=== PATIENT | female | born 1965 | race Caucasian/White ===

== ENCOUNTER 2024-08-14 12:57 | Inpatient (IN) | payer MEDICAID, SELFPAY ==
[2024-08-14] VITALS (30 sets, daily range): BP systolic 61–146; BP diastolic 39–124; PULSE 16–91; RESP 16–29; TEMP 36.5–37.1; O2SAT 70–98; BMI 41.5
--- NOTE | 2024-08-14 13:00 | PC.NURSE ---
Pt. here from [facility], per facility staff to inspector circuitry negative, pt. was altered more today than usual, pt. was answering questions and a GCS of 15 but was slummed over to the left.
[2024-08-14] MEDS: ETOMIDATE INJ 2 MG/ML VIAL 10 ML 20 MG IVP (13:10)
[2024-08-14] MEDS: VECURONIUM 10 MG 20 MG IV (13:11)
--- NOTE | 2024-08-14 13:14 | PC.NURSE ---
Pt. intubated at 1314, tube size 7.0 and 24 @ the lip. Pt. intubated by Dr. Luque, Renetta RN, Nancy RT, Shandra RN, Angela RECREATION TECHNICIAN, Karime RT all bedside.
--- NOTE | 2024-08-14 13:16 | PC.NURSE ---
Pt. has thick brown sputum in ET tube.
[2024-08-14] MEDS: SODIUM CHLORIDE 0.9% 1000 ML 1,000 ML 999 ML IV (13:38)
--- NOTE | 2024-08-14 13:40 | XR_ITS ---
Examination: CT brain head without contrast. 2-D sagittal coronal reconstructions Date and time of exam:August 14, 2024 1451 hrs. Indications: Onset altered mental status today CTDI: vol (mGy):59.7 DLP: (mGycm):1248 Technique: Multiple CT axial sections of the brain have been obtained, 5 mm slice thickness. Contrast has not been administered. 2-D sagittal, coronal reconstructions have been obtained Low dose protocols were performed. One or more of the following dose reduction techniques were used; automated exposure control, adjustment of the mA and/or KV according to patient size, use of iterative reconstruction technique. Findings: Old infarct right middle cerebral artery distribution with ipsilateral ventricular dilatation Intra-axial or extra-axial hemorrhage density is not seen. No mass effect or midline shift Basal cisterns are not remarkable. Fourth ventricle is midline. Cranial vault intact. Impression: Negative for acute hemorrhage, mass effect or midline shift As clinically warranted, brain MRI follow-up would best assess for acute ischemic change
--- NOTE | 2024-08-14 13:40 | XR_ITS ---
Examination: AP chest single view Technique one AP portable supine chest single view Exam date and time: August 14, 2024 1421 hrs. Comparison July 06, 2021 Indications: Hypoxic respiratory failure today Findings: Extensive bilateral lung opacity Endotracheal tube tip 3.4 cm above krish Orogastric tube in the stomach Mild enlargement cardiac contour with vascular congestion Prominent osteopenia Impression: Extensive bilateral lung opacity most consistent with pneumonia Consider mild associated heart failure
--- NOTE | 2024-08-14 13:56 | PC.NURSE ---
received a call from [facility] that pt.'s was visiting pt. earlier today and may have given pt. some pills, staff at facility state pt.'s has been in trouble before for giving pt. pills.
[2024-08-14 13:59] LABS: Base Excess -11 (-3-3); HCO3 19 mEq/L (20-26); PCO2 57 mmHg (32.0-48.0); PO2 80 mmHg (83-108)
[2024-08-14 14:00] LABS: Allen Test Performed/OK; Inspired Oxygen, FIO2 100 %; O2 Saturation 98 % (91-98); Puncture Site Left Radial
[2024-08-14 14:01] LABS: pH, Arterial 7.12 (7.35-7.45)
--- NOTE | 2024-08-14 14:05 | EDNOTE_ITS ---
Altered Mental Status RME/HPI General Chief Complaint: Altered Mental Status Stated Complaint: DIFF BREATHING Time Seen by Provider: 08/14/24 13:39 Arrival date/time: 08/14/24 12:57 RME / HPI RME / HPI narrative: The patient was brought into the emergency department by ambulance from the [place] [facility]. Chief complaint he is on the mental status. Special Education Preschool Teacher noted that the patient is breathing heavy and she is slumping to the left side. The patient does have a history of stroke with left-sided paralysis. Special Education Preschool Teacher also noted that she was hypoxic tachycardic with a blood sugar of 201 and a blood pressure of 144/96 and an O2 saturation of 71% on room air. According to the paperwork from a [place] [facility] the patient is full code Past medical history significant for congestive heart failure, atrial fibrillation, obesity, CVA with left-sided paralysis hypertension, hypothyroidism, congestive heart failure bilateral pneumonia. COPD. Related Data Home Medications ?Medication ?Instructions ?Recorded ?Confirmed alprazolam 0.5 mg tablet 0.5 mg PO BID 08/20/18 07/07/21 hydroxyzine HCl 25 mg tablet 25 mg PO QHSPRN PRN Insomnia 08/20/18 07/07/21 levothyroxine 100 mcg tablet 100 mcg PO QDAY 08/20/18 07/07/21 buspirone 10 mg tablet 10 mg PO BID 07/07/21 07/07/21 diltiazem HCl 30 mg tablet 30 mg PO TID 07/07/21 07/07/21 fluoxetine 20 mg capsule 20 mg PO QDAY 07/07/21 07/07/21 metoprolol succinate 50 mg 50 mg PO QDAY 07/07/21 07/07/21 tablet,extended release 24 hr rivaroxaban 20 mg tablet (Xarelto) 20 mg PO QDAY 07/07/21 07/07/21 Previous Rx's ?Medication ?Instructions ?Recorded furosemide 20 mg tablet (Lasix) 40 mg (2 x 20 mg) PO QDAY #0 tabs 08/24/18 albuterol sulfate 90 mcg/actuation 2 puff inhalation QID PRN 07/09/21 aerosol inhaler shortness of breath or wheezing #6.7 grams methylprednisolone 4 mg tablets in 4 mg PO QDAY #21 tabs 07/10/21 a dose pack (Medrol (Jasvir)) Allergies Allergy/AdvReac Type Severity Reaction Status Date / Time Penicillins Allergy Unknown Verified 07/06/21 14:48 hydrocodone AdvReac Mild N/V Verified 07/06/21 14:48 Review of Systems Review of Systems ROS Unobtainable: unobtainable due to mental status and unobtainable due to medical condition Past Medical History Past Medical History NEUROLOGIC: Positive Cerebrovascular Accident; Negative Neurological Disorders CARDIAC: Positive Cardiac Disorders, Atrial Fibrillation, Hypercholesterolemia, Congestive Heart Failure, Edema, Deep Vein Thrombosis and Hypertension RESPIRATORY: Positive Chronic Obstructive Pulmonary Disease (COPD), Asthma and Sleep Apnea GASTROINTESTINAL: Positive Gastrointestinal Disorders, Gastroesophageal Reflux Disease and Obesity; Negative Hepatitis GENITOURINARY: Negative Genitourinary Disorders or Renal Disease REPRODUCTIVE: Positive Previous Pregnancies MUSCULOSKELETAL: Positive Arthritis; Negative Musculoskeletal Disorders ENDOCRINE: Positive Hypothyroidism; Negative Diabetes Mellitus Type 1 or Diabetes Mellitus Type 2 HEMATOLOGIC: Positive Blood Disorders and Anemia; Negative Sickle Cell Disease PSYCHO/SOCIAL: Positive Depression and Anxiety OTHER HISTORY: Positive Measles and Mumps; Negative Autoimmune Disease, Blood Transfusions, Anesthesia Reactions, MRSA, Human Immunodeficiency Virus (HIV), Chicken Pox, Rubella (Togolese Measles), Pertussis or Clostridium Difficile Surgical History SURGICAL: Negative Cardiac Surgery, Endocrine Surgery, Ear Surgery, Abdominal Surgery or Joint Replacement Social History SMOKING STATUS: Unknown if ever smoked SECOND HAND EXPOSURE: Yes SUBSTANCE USE: does not use ED Exam Narrative Physical exam: GCS of 3 Breathing tachypneic and wet lung sounds. O2 saturation was only 70% on room air. Necessitating immediate intubation. Heent:? per. No icteric. Neck: No mass.? No jvd.? No lymphadenopathy Lungs: Lungs are wet bilaterally. And tachypneic. Full, equal Heart:? s1s2.? Rrr.? No murmur, gallop or rub. Abd: soft, nondistended, nontender, no mass, no rebound or guarding, no flank tender.? No incarcerated? hernia Ext:?No spontaneous movement. No deformity. [place] and warm and moist. Neuro: Nonverbal. No spontaneous eye movement. No spontaneous movement. Upon arrival to the emergency department the patient was seen slumping to the left side of the rsan diego. Skin:? no rash.? No cellulitis.? No lesion.? No laceration Psychiatrical: Not able Course Quality Measures none Orders Category Date Time Status Bedside COVID-19 Antigen Test NOW Care 08/14/24 16:45 Active EKG (ED ONLY) *Do not use* NOW Care 08/14/24 13:40 Completed Phan [Urinary Catheter] QS Care 08/14/24 13:40 Active Intubation NOW Care 08/14/24 13:[address] head/brain wo con Stat Exams 08/14/24 13:40 Completed EKG (ED Only) Stat Exams 08/14/24 13:40 Ordered XR chest 1V portable Stat Exams 08/14/24 13:40 Completed ABG [Arterial Blood Gas] Routine Lab 08/14/24 13:56 Completed BNP [B-Type Natriuretic Peptide] Stat Lab 08/14/24 14:20 Completed Blood Culture (Lab) Stat Lab 08/14/24 16:46 Ordered CBC Stat Lab 08/14/24 14:20 Completed CMP [Comprehensive Metabolic Panel] Stat Lab 08/14/24 14:20 Completed Digoxin Stat Lab 08/14/24 14:20 Completed Drug Screen,Urine Stat Lab 08/14/24 14:00 Completed Procalcitonin Stat Lab 08/14/24 14:20 Completed Sputum Culture and Gram Stain Stat Lab 08/14/24 13:36 Received Troponin I Stat Lab 08/14/24 14:20 Completed UA, C/S IF [Urinalysis, C/S if Indicated] Stat Lab 08/14/24 14:00 Completed Etomidate Inj [Amidate Inj] Med 08/14/24 13:02 Discontinued 20 mg .ROUTE .STK-MED ONE Etomidate Inj [Amidate Inj] Med 08/14/24 13:05 Discontinued 20 mg IVP X1 ONE Pantoprazole Inj [Protonix Inj] Med 08/14/24 16:45 Discontinued 40 mg IVP X1 ONE Sodium Chloride 0.9% 1000 ml [Ns] 1,000 ml Med 08/14/24 13:37 Discontinued IV 999 mls/hr Vancomycin Inj 1,000 mg Med 08/14/24 16:45 Active Sodium Chloride 0.9% 250 ml [Ns] 250 ml IV X1 Vecuronium Inj [Norcuron Inj] Med 08/14/24 13:03 Discontinued 20 mg .ROUTE .STK-MED ONE Vecuronium Inj [Norcuron Inj] Med 08/14/24 13:06 Discontinued 20 mg IV X1 ONE cefTRIAXone/D5w 1gm IV premix [Rocephin/D5w 1gm IV Med 08/14/24 16:45 Active premix] 50 ml IV X1 Mechanical [Volume Ventilator] Stat RT 08/14/24 Active Vital Signs Vital signs: Vital Signs Temperature 98.8 F 08/14/24 12:59 Pulse Rate 91 08/14/24 12:59 Respiratory Rate 16 08/14/24 12:59 Blood Pressure 77/39 L 08/14/24 12:59 Pulse Oximetry (%) 71 L 08/14/24 12:59 Oxygen Delivery Method Room Air 08/14/24 12:59 Altered Mental Status MDM Narrative MDM Narrative:: Upon arrival to the emergency department the patient was intubated by me with a size 7 ET tube. Using glide a scope. No complication. The tube is in position. Positive for CO2 hand-held monitor color changes. No stomach air bubble. O2 saturation went up to as high as 100% on the ventilator. Chest x-ray postintubation: ET tube is in good position. OG tube is in good position. Bibasilar infiltrate. Heart normal. Mediastinum normal. No pneumothorax Twelve-lead EKG interpreted by me: Sinus rhythm. Heart rate of 91. No ST segment elevation. Minimal ST segment depressions in the lateral V leads. PVC. [address] [place] [address] [facility] Report Signed Patient: MARILYN DE LA CRUZ Record#: [id number] Birthdate: 1965 Age/Sex: 59 / F Location: [facility] Attending Dr: Ordering Physician: Andrei Luque MD Date of Service: 08/14/24 Procedure(s): CT head/brain wo con Accession Number(s): [id number] cc: Ed Alcocer MD; Andrei Luque MD~ Examination: CT brain head without contrast. 2-D sagittal coronal reconstructions Date and time of exam:August 14, 2024 1451 hrs. Indications: Onset altered mental status today CTDI: vol (mGy):59.7 DLP: (mGycm):1248 Technique: Multiple CT axial sections of the brain have been obtained, 5 mm slice thickness. Contrast has not been administered. 2-D sagittal, coronal reconstructions have been obtained Low dose protocols were performed. One or more of the following dose reduction techniques were used; automated exposure control, adjustment of the mA and/or KV according to patient size, use of iterative reconstruction technique. Findings: Old infarct right middle cerebral artery distribution with ipsilateral ventricular dilatation Intra-axial or extra-axial hemorrhage density is not seen. No mass effect or midline shift Basal cisterns are not remarkable. Fourth ventricle is midline. Cranial vault intact. Impression: Negative for acute hemorrhage, mass effect or midline shift As clinically warranted, brain MRI follow-up would best assess for acute ischemic change Dictated By: Ed Alcocer MD Signed By: <Electronically signed by Ed Alcocre MD in OV> 08/14/24 1519 CBC negative. CMP remarkable for creatinine 1.4. And BUN of 34. May be consistent with dehydration. Procalcitonin is 17 which is consistent with pneumonia. Troponin is negative. BNP is slightly elevated at 400. Blood gas showing a pH of 7.12. pCO2 97. An O2 saturation of 98% on the vent. UA is negative. CT head resulted as above. In the emergency department when doing the Phan catheter, nurse noted that her stool is black. Guaiac was positive for blood. The patient is put on proton tonics IV by me. The patient is receiving IV antibiotics namely Rocephin and vancomycin for pneumonia. And she was intubated as above. 4:50 PM, I spoke to and discussed with Dr. Badillo, ICU doctor on-call. He agreed to admit the patient for further evaluation and treatment. Thank you Critical care time is approximately 50 minutes excluding any procedure. The high probability of sudden, clinically significant deterioration in the patient?s condition required the highest level of my preparedness to intervene urgently. The services I provided to this patient were to treat and/or prevent clinically significant deterioration. Services included the following: chart data review, reviewing nursing notes and/or old charts, documentation time, valuation consultant collaboration regarding findings and treatment options, medication orders and management, direct patient care, vital sign assessments and ordering, interpreting and reviewing diagnostic studies and lab tests. Aggregate critical care time includes only time during which I was engaged in work directly related to the patient?s care, as described above, whether at bedside or elsewhere in the Emergency Department. It did not include time spent performing other reported procedures or the services of residents, students, nurses or physician assistants. Patient data External records reviewed:: [facility] previous records Clinical information provided by:: EMS Social determinants that could affect healthcare access:: none Patient has the following chronic illnesses:: History of stroke with left-sided hemiparesis How is presenting disease/condition affected by chronic disease/condition?: exacerbated by Evaluation data The following diagnostics were reviewed and interpreted by me:: lab results, radiology exam(s) and EKG tracing(s) Lab and/or radiology exams considered but not ordered:: None Interpretation Summary: See MDM Medications / Prescriptions Medications or Prescriptions considered but not ordered:: None Medication administrations:: Medication Administration History Ceftriaxone Sodium/Dextrose (Rocephin/D5w 1gm Iv Premix) 50 mls @ 100 mls/hr IV X1 ONE Stop: 08/14/24 17:14 Vancomycin HCl 1,000 mg/ (Sodium Chloride) 250 mls @ 150 mls/hr IV X1 ONE Stop: 08/14/24 18:24 Discontinued Medications Etomidate (Etomidate Inj 2 Mg/Ml Vial 10 Ml) 20 mg IVP X1 ONE Stop: 08/14/24 13:06 Last Admin: 08/14/24 13:10 Dose: 20 mg Documented By: ED Etomidate (Etomidate Inj 2 Mg/Ml Vial 10 Ml) Confirm Administered Dose 20 mg .ROUTE .STK-MED ONE Stop: 08/14/24 13:03 Last Admin: 08/14/24 13:12 Dose: Not Given Documented By: ED Non-Admin Reason: Duplicate Medication on eMAR Sodium Chloride (Ns) 1,000 mls @ 999 mls/hr IV .Q1H1M ONE Stop: 08/14/24 14:37 Last Admin: 08/14/24 13:38 Dose: 999 mls/hr Documented By: ED Pantoprazole Sodium (Pantoprazole Inj 40 Mg Vial) 40 mg IVP X1 ONE Stop: 08/14/24 16:46 Vecuronium [place] (Vecuronium Inj 10 Mg Vial) 20 mg IV X1 ONE Stop: 08/14/24 13:07 Last Admin: 08/14/24 13:11 Dose: 20 mg Documented By: ED Co-signed By: Vecuronium [place] (Vecuronium Inj 10 Mg Vial) Confirm Administered Dose 20 mg .ROUTE .STK-MED ONE Stop: 08/14/24 13:04 Last Admin: 08/14/24 13:12 Dose: Not Given Documented By: ED Non-Admin Reason: Duplicate Medication on eMAR See above Consultations Consultation(s) initiated? (list below): No Diagnosis Most likely diagnosis given after review of the tests above:: Pneumonia. Mental status change. Intubation. Admission Indicated Admission indicated?: indicated Admission Request Was there a request for admission?: Yes Admission Attestation Admission request attestation: Discussed case with [] from Hospitalist service regarding admission. Discussed patients ED course, exam findings, labs, and radiology results. The Hospitalist [agrees,declines] to accept the patient for admission. Disposition Plan Disposition Plan: Admit Discharge Plan Plan Patient Disposition: Admit Acute Care w/in Hospital Disposition Comment: Stable and improved for admission Prescriptions/Referrals Prescriptions/Med Rec: No Action levothyroxine 100 mcg Tablet 100 mcg PO QDAY alprazolam 0.5 mg Tablet 0.5 mg PO BID Rx Instructions: Rx Bottle that pt brought empty; pt states she takes the medication as written on the bottle. hydroxyzine HCl 25 mg Tablet 25 mg PO QHSPRN PRN (Reason: Insomnia) furosemide [Lasix] 20 mg Tablet 40 mg PO QDAY Qty: 0 0RF buspirone 10 mg Tablet 10 mg PO BID Rx Instructions: Rx Bottle that pt brought empty; pt states she takes the medication as written on the bottle. fluoxetine 20 mg Capsule 20 mg PO QDAY Xarelto 20 mg Tablet 20 mg PO QDAY metoprolol succinate 50 mg Tablet Extended Release 24 Hr 50 mg PO QDAY diltiazem HCl 30 mg Tablet 30 mg PO TID albuterol sulfate 90 mcg/actuation HFA aerosol inhaler 2 puff inhalation QID PRN (Reason: shortness of breath or wheezing) Qty: 6.7 0RF methylprednisolone [Medrol (Jasvir)] 4 mg tablets,dose pack 4 mg PO QDAY Qty: 21 0RF Referrals: No Primary/Family,Physician [Primary Care Provider] - In 1 week Problem List Clinical Impression: Acute respiratory failure, Pneumonia, AMS (altered mental status), Encounter for intubation, Upper gastrointestinal bleed Patient/Caregiver Discharge Instructions Print Language: Ivorian Stand Alone Forms: Stephania Award Info., Patient Portal Info Letter
[2024-08-14 14:15] LABS: Collection Type, Urine Catheter
[2024-08-14 14:20] LABS: Bilirubin,Urine Negative (Negative); Blood,Urine Negative (Negative); Clarity,Urine Clear (Clear/Hazy); Color,Urine Yellow (Lt Yel-Yel); Culture Indicated,Urine Not Indicated; Glucose, Urine Negative (Negative); Hyaline Casts,Urine < 1 /hpf (0-1); Ketones,Urine Negative (Negative); Leukocyte Esterase,Urine Negative (Negative); Nitrite,Urine Negative (Negative); PH,Urine 5.5 (5.0-7.0); Protein,Urine Negative (Neg - Trace); RBC,Urine 3 /hpf (0-3); Squamous Epithelial Cell,Urine 1 /hpf (0-5); WBC,Urine 5 /hpf (0-5)
[2024-08-14 14:34] LABS: Amphetamine/Methamp Scrn,U Negative (Negative); Barbiturate Screen,Urine Negative (Negative); Benzodiazepines Screen,Urine Positive (Negative); Benzoylecgonine Screen, Ur Negative (Negative); Fentanyl Screen,Urine Negative (Negative); Opiate Screen,Urine Negative (Negative); THC Screen,Urine Negative (Negative)
[2024-08-14 14:57] LABS: Basophils % (Auto) 0 % (0-2.5); Eosinophils % (Auto) 0 % (0-10); Hematocrit 43.6 % (36.0-46.0); Hemoglobin 12.7 g/dL (12.0-16.0); Immature Granulocytes % (Auto) 0 % (0-0); Immature Granulocytes Auto 0.04 Thou/mm3 (0.00-0.00); Lymphocytes # (Auto) 1.2 Thou/mm3 (1.0-4.8); Lymphocytes % (Auto) 11 % (10-50); Mean Corpuscular HGB Conc 29.1 g/dl (31.0-37.0); Mean Corpuscular Hemoglobin 25.2 pg (25.0-35.0); Mean Corpuscular Volume 87 fL (80-100); Monocytes # (Auto) 0.7 Thou/mm3 (0.0-0.8); Monocytes % (Auto) 6 % (0-12); Neutrophils % (Auto) 82 % (37-80); Nucleated Red Blood Cell # 0.02 Thou/mm3 (0.00-0.00); Nucleated Red Blood Cell % 0 /100 WBC (0); Platelet Count 971 Thou/mm3 (140-440); RDW Standard Deviation 65.6 fL (36.4-46.3); Red Blood Count 5.03 Miln/mm3 (4.00-5.20)
[2024-08-14 15:03] LABS: B-Type Natriuretic Peptide 405 pg/mL (0-100)
[2024-08-14 15:22] LABS: Alanine Aminotransferase 24 U/L (10-49); Albumin, Serum 2.4 gm/dL (3.5-5.0); Albumin/Globulin Ratio 0.7 (1.2-2.2); Alkaline Phosphatase 271 U/L (46-116); Anion Gap 13 (7-16); Aspartate Amino Transferase 74 U/L (0-34); BUN/Creatinine Ratio 24 Ratio (12-20); Bilirubin,Total 0.6 mg/dL (0.3-1.2); Blood Urea Nitrogen 34 mg/dL (9-23); Calcium 8.3 mg/dL (8.3-10.6); Calcium (Corrected) 9.6 mg/dL (8.5-10.1); Carbon Dioxide 19.1 mMol/L (20.0-31.0); Chloride 100 mMol/L (98-107); Creatinine (Component) 1.4 mg/dL (0.6-1.3); Estimated Creatinine Clearance 55.7 mL/min (>60); Globulin 3.5 gm/dL (2.3-3.5); Glucose 139 mg/dL (74-106); Osmolality,Calculated 274 (275-295); Procalcitonin 17.62 ng/ml (0.0-0.49); Sodium 132 mMol/L (136-145); Total Protein 5.9 gm/dL (5.7-8.2); Troponin I < 0.020 ng/mL (0.0-0.045); eGFR 44 See Note
[2024-08-14 15:25] LABS: Digoxin 2.7 ng/mL (0.8-2.0)
--- NOTE | 2024-08-14 15:26 | PC.NURSE ---
Pt. cleaned and pt. has dark black stool, pt. has redness to her buttocks, pt. has redness to her chest as well.
[2024-08-14] MEDS: cefTRIAXone/D5w 1gm IV premix 50 ML IV (17:34)
[2024-08-14] MEDS: PANTOPRAZOLE INJ 40 MG VIAL IVP (17:40)
[2024-08-14 18:03] LABS: Path Review Blood Smear Sent to Pathologist
[2024-08-14 18:07] LABS: Base Excess -9 (-3-3); HCO3 20 mEq/L (20-26); Inspired Oxygen, FIO2 100 %; O2 Saturation 90 % (91-98); PCO2 58 mmHg (32.0-48.0); PO2 69 mmHg (83-108)
[2024-08-14 18:09] LABS: Allen Test Performed/OK; Puncture Site Right Radial
[2024-08-14 18:10] LABS: pH, Arterial 7.15 (7.35-7.45)
--- NOTE | 2024-08-14 18:17 | PC.RT ---
ABG results reported to MD. RR increased to 20 per MD. Repeat ABG to be done in 1hr.
--- NOTE | 2024-08-14 18:20 | XR_ITS ---
Examination: CT chest, without intravenous contrast. CT abdomen, without intravenous contrast. CT pelvis, without intravenous contrast. 2-D sagittal and coronal reconstructions. 3-D reconstructions. Date and time of exam:August 14, 2024 1933 hrs. Indications: Acute hypoxic respiratory failure shortness of breath this week CTDI vol (mgy) 25 DLP (MGycm)2031 Technique: Multiple CT images, 3.0 mm slice thickness, obtained chest, abdomen, pelvis, with the high-resolution 64 slice scanner.. Sagittal and coronal 2-D reconstructions are obtained. 3-D reconstructions Low dose protocols were performed. One or more of the following dose reduction techniques were used; automated exposure control, adjustment of the mA and/or KV according to patient size, use of iterative reconstruction technique. Findings: Thoracic aortic calcification no aneurysmal dilatation Pulmonary artery segments are not enlarged extensive bilateral primarily mid and lower lung zone pneumonia Tracheal tube tip 3.5 cm above krish Mild enlargement cardiac contour with vascular congestion Severe diffuse fatty infiltration throughout the liver no focal liver or splenic lesions Cholelithiasis, gallbladder wall appears thickened Spleen is not enlarged No pancreatic mass No hydronephrosis renal or ureteral calculi Abdominal aortic calcification no aneurysmal dilatation No bowel obstruction Diffuse thickening of the colonic wall including rectum Urinary bladder contracted around a Phan catheter Severe osteopenia Impression: Significant bilateral pneumonia ARDS pattern Cholelithiasis, recommend gallbladder sonography follow-up to exclude cholecystitis Severe diffuse fatty infiltration throughout the liver Significant diffuse nonspecific colitis proctitis pattern
--- NOTE | 2024-08-14 18:43 | PD.RESHP ---
Documentation for date of: 08/14/24 [facility] History of Present Illness Chief complaint: AMS History of present illness: 59 y/o F with PMHx significant for CHF, Afib, HTN, COPD, CVA with residual left sided paralysis, brought in by EMS from [facility] due to AMS. EMS noted patient was hypoxic saturating 71% on room air. On arrival patient was determined to be A&Ox4 and GCS 15 in the ED. Patient intubated due to severe hypoxia. Nursing facility called to inform ED that patient's had visited and has been known to give patient pills. Tox screen positive for benzos. While placing Phan cath, nurse noted patient had black stools. Stool guac positive. Patient received 1L bolus NS, ceftriaxone, and protonix in the ED. Head CT unremarkable. CXR showed bilateral central opacities indicating pneumonia and congestion. Patient admitted to ICU due to intubation. Review of Systems Review of Systems ROS Unobtainable: unobtainable due to mental status and due to endotracheal tube Exam Vital Signs Temp Pulse Resp BP Pulse Ox O2 Del Method FiO2 98.8 F 86 16 105/51 L 93 L Mechanical Ventilation 100 08/14/24 12:59 08/14/24 18:12 08/14/24 17:54 08/14/24 18:09 08/14/24 18:12 08/14/24 17:54 08/14/24 18:12 Narrative Exam PE: Gen: Well-developed and well-nourished. Obese. Intubated. HEENT: NCAT, PERRLA, EOMI, MMM, anicteric conjunctivae. CVS: normal S1 and S2. RRR. No M/R/G. Resp: Poor lung sounds due to body habitus. Coarse lung sounds throughout. Left basilar crackles. Abd: soft, non-tender, non-distended. Firm mass in RLQ. MSK: 2+ pitting edema in bilateral upper and lower extremities. Extremities cool to touch. Neuro: GCS 3. Results: Labs 08/16/24 07:50 08/16/24 06:40 Labs: Short CBC 08/14/24 Range/Units 14:20 WBC 11.0 (3.6-11.0) Thou/mm3 Hgb 12.7 (12.0-16.0) g/dL Hct 43.6 (36.0-46.0) % Plt Count 971 H (140-440) Thou/mm3 BMP 08/14/24 14:20 Sodium 132 L Potassium 4.0 Chloride 100 Carbon Dioxide 19.1 L BUN 34 H Creatinine 1.4 H Glucose 139 H Calcium 8.3 Cardiac Enzymes 08/14/24 Range/Units 14:20 Troponin I < 0.020 (0.0-0.045) ng/mL Liver Function 08/14/24 Range/Units 14:20 Total Bilirubin 0.6 (0.3-1.2) mg/dL AST 74 H (0-34) U/L ALT 24 (10-49) U/L Alkaline Phosphatase 271 H (46-116) U/L Albumin 2.4 L (3.5-5.0) gm/dL Urine 08/14/24 Range/Units 14:00 Urine Color Yellow (Lt Yel-Yel) Urine Clarity Clear (Clear/Hazy) Urine pH 5.5 (5.0-7.0) Ur Specific [place] 1.020 (1.001-1.035) Urine Protein Negative (Neg - Trace) Urine Glucose (UA) Negative (Negative) ABG Interpretation ABG results: 08/14/24 08/14/24 13:56 18:03 ABG pH 7.12 L* 7.15 L* ABG pCO2 57 H 58 H ABG pO2 80 L 69 L ABG HCO3 19 L 20 ABG O2 Saturation 98 90 L ABG Base Excess -11 L -9 L Quality Measures Quality Measures VTE prophylaxis Medications Home Medications and Allergies Home Medications ?Medication ?Instructions ?Recorded ?Confirmed ?Type alprazolam 0.5 mg tablet 0.5 mg PO BID 08/20/18 07/07/21 History hydroxyzine HCl 25 mg tablet 25 mg PO QHSPRN PRN Insomnia 08/20/18 07/07/21 History levothyroxine 100 mcg tablet 100 mcg PO QDAY 08/20/18 07/07/21 History buspirone 10 mg tablet 10 mg PO BID 07/07/21 07/07/21 History diltiazem HCl 30 mg tablet 30 mg PO TID 07/07/21 07/07/21 History fluoxetine 20 mg capsule 20 mg PO QDAY 07/07/21 07/07/21 History metoprolol succinate 50 mg 50 mg PO QDAY 07/07/21 07/07/21 History tablet,extended release 24 hr rivaroxaban 20 mg tablet (Xarelto) 20 mg PO QDAY 07/07/21 07/07/21 History Allergies Allergy/AdvReac Type Severity Reaction Status Date / Time Penicillins Allergy Unknown Verified 07/06/21 14:48 hydrocodone AdvReac Mild N/V Verified 07/06/21 14:48 Visit Medications Acetaminophen (Acetaminophen 325 Mg Tablet) 650 mg PO Q4HR PRN PRN Reason: PAIN SCALE 1-3 (mild Stop: 09/13/24 17:20 Acetaminophen (Acetaminophen Supp 650 Mg Supp) 650 mg ND Q4HR PRN PRN Reason: PAIN SCALE 1-3 (mild Stop: 09/13/24 17:20 Al Hydrox/Mg Hydrox/Simethicone (Mg Hyd/Al Hyd/Nolan (Maalox Reg) Susp 30 Ml Udc) 30 ml PO Q4HR PRN PRN Reason: Heartburn or Upset Stomach Stop: 09/13/24 17:20 Dextrose (Dextrose 50%-Water Inj 50 Ml Syringe) 25 ml IV Q15MIN PRN PRN Reason: BG 50-70 responsive npo pt Stop: 09/13/24 17:44 Dextrose (Dextrose 50%-Water Inj 50 Ml Syringe) 50 ml IV Q15MIN PRN PRN Reason: BG <50 OR BG <70 & pt unresponsive Stop: 09/13/24 17:44 Fentanyl Citrate (Sublimaze Inj 2,500 Mcg/250 Ml Bag) 2,500 mcg in 250 mls @ 2.5 mls/hr IV .Q24H PRN; Protocol PRN Reason: PER PROTOCOL Stop: 08/19/24 17:20 Azithromycin 500 mg/ Sodium (Chloride) 250 mls @ 250 mls/hr IV QDAY@1400 CONSTANCE Stop: 08/21/24 17:33 Propofol (Diprivan Ivpb) 1,000 mg in 100 mls @ 3.402 mls/hr IV .Q24H PRN; Protocol PRN Reason: PER PROTOCOL Stop: 09/13/24 17:36 Ceftriaxone Sodium/Dextrose (Rocephin/D5w 1gm Iv Premix) 50 mls @ 100 mls/hr IV QDAY@1400 CONSTANCE Stop: 08/22/24 13:59 Insulin Human Lispro (Insulin Lispro (Admelog) 1 Unit/0.01 Ml Unit) 0 unit SC ACHS [facility]; Protocol Stop: 09/13/24 20:59 Magnesium Hydroxide (Milk Of Magnesia Susp 30 Ml Udc) 30 ml PO QDAY PRN PRN Reason: CONSTIPATION Stop: 09/13/24 17:20 Nitroglycerin (Nitroglycerin 0.4 Mg Subl Btl #25) 0.4 mg SL Q5MIN PRN PRN Reason: CHEST PAIN Ondansetron HCl (Ondansetron Inj 2 Mg/Ml Inj 2 Ml) 4 mg IV Q8HR PRN PRN Reason: NAUSEA OR VOMITING Stop: 09/13/24 17:20 Rivaroxaban (Rivaroxaban 10 Mg Tablet) 20 mg PO WSUPPER [facility] Stop: 09/14/24 17:29 Discontinued Medications Etomidate (Etomidate Inj 2 Mg/Ml Vial 10 Ml) 20 mg IVP X1 ONE Stop: 08/14/24 13:06 Last Admin: 08/14/24 13:10 Dose: 20 mg Heparin Sodium (Porcine) (Heparin Sod Inj 5000 Unit/Ml Vial) 5,000 unit SC Q8HR [facility] Stop: 08/28/24 21:59 Sodium Chloride (Ns) 1,000 mls @ 999 mls/hr IV .Q1H1M ONE Stop: 08/14/24 14:37 Last Infusion: 08/14/24 14:39 Dose: Infused Ceftriaxone Sodium/Dextrose (Rocephin/D5w 1gm Iv Premix) 50 mls @ 100 mls/hr IV X1 ONE Stop: 08/14/24 17:14 Last Admin: 08/14/24 17:34 Dose: 100 mls/hr Vancomycin HCl 1,000 mg/ (Sodium Chloride) 250 mls @ 150 mls/hr IV X1 ONE Stop: 08/14/24 18:24 Pantoprazole Sodium (Pantoprazole Inj 40 Mg Vial) 40 mg IVP X1 ONE Stop: 08/14/24 16:46 Last Admin: 08/14/24 17:40 Dose: 40 mg Vecuronium [place] (Vecuronium Inj 10 Mg Vial) 20 mg IV X1 ONE Stop: 08/14/24 13:07 Last Admin: 08/14/24 13:11 Dose: 20 mg Assessment & Plan Plan 59 y/o F with PMHx significant for CHF, Afib, HTN, COPD, CVA with residual left sided paralysis, brought in by EMS from [facility] due to AMS, admitted to ICU for AHRF requiring intubation. Neuro: #Acute encephalopathy Patient was A&Ox4 and GCS 15 on arrival, GCS [address] unremarkable. -Treat underlying conditions #CVA history Patient has history of CVA with left sided paralysis Cardio: #Cardiogenic shock Patient has poor perfusion, with lactate 5.0, cool pale extremities. Patient has history of CHF. Significant pitting edema, vascular congestion of CXR, crackles in LL lung, BNP 405. EKG showed ST depressions in leads V3?V6 and diffuse T wave inversions. -Lasix 40mg x1 -echo pending -trending troponin -Levophed titrate to protocol #A-fib Patient has history of A-fib. Receives outpatient Xarelto. -Resume home Xarelto 20 mg daily Pulm: #AHRF 2/ fluid overload #Pneumonia Patient presented with hypoxia 71% on room air. Patient intubated for AHRF. Patient is fluid overloaded on exam, crackles on left lower lung chen, CXR showing vascular congestion and diffuse haziness indicating pneumonia. Patient leukocytosis 11.0 (borderline elevated), Pro-Andry 17.62. -Rocephin and azithromycin -Lasix 40 mg IV x 1 GI: #Abdominal mass Firm abdominal mass found in RLQ on exam. CT chest/abd/pelvis pending. -follow up CT results #Melana Patient had melena with positive stool guac test. Hemoglobin is 12.7. CT abd/chest/pelvis pending. BUN 34, BUN/Machine Shop Apprentice ratio 24, more consistent with prerenal QASIM than upper GI bleed. -follow up CT -Protonix 40mg IV daily -Monitor for further signs of GI bleed -Monitor hemoglobin Renal: #QASIM vs CKD Patient had elevated creatinine and BUN on admission. No recent labs, unable to determine if acute or chronic. Suspect prerenal due to renal congestion. -Monitor urine output -daily labs -avoid nephrotoxins -Lasix 40mg IV x1 #Anion gap metabolic acidosis Patient is acidotic with with ABG showing pH 7.15, pCO2 58, pO2 69. Serum bicarb 19.1. Anion gap corrected for low albumin 17. Lactic acid elevated 5.0 due to cardiogenic shock. -Treat lactic acidosis -Adjust vent settings as needed to maintain permissive hypercapnia Endo: #Hyperglycemia Patient has no known history of diabetes. Patient blood sugar elevated around 200. Most recent A1c 6.2% on 03/10/18. -A1c ordered. -ISS -q6h glucose checks Heme: #Thrombocytosis Patient has thrombocyte count 971. No known history of myeloproliferative disorder. -Consider testing for proliferative mutations. ID: #Pneumonia Patient has diffuse haziness on chest x-ray indicating possible pneumonia. Patient is afebrile, leukocyte count 11.0 borderline elevated, Pro-Andry 17.62. -Azithromycin 500 mg IV daily (started 08/14) -Ceftriaxone 2 g IV daily (started 08/14) Skin/MSK: #LYNETTE ICU Health maintenance: Mechanical ventilation: Yes Sedation: None Diet: None DVT ppx: Xarelto GI ppx: Protonix Phan: Yes IV lines: 3 Peripheral IVs Central line: No Arterial line: No Code status:Full Code Plan of care discussed with attending Dr. Badillo. Nakul Samuel MD PGY-1 Attending Provider Attestation/Addendum Patient not seen on date of service. Patient admitted by residents with mixed septic/cardiogenic shock. I was contacted by resident team and did direct plan of care as per above. Patient with significant lactic acidosis with imaging suggestive of ischemic colitis. Potential confounder as well noted with the right lower quadrant mass as an alternate etiology for type B lactic acidosis despite adequate perfusion. We requested surgical input immediately after our review of the CT. Appreciate surgical input overnight. Maintain MAP goal of 65 and follow serial lactate patient requiring increasing vasopressor doses with central line placed at my direction. Appropriate volume resuscitation with antibiotics until clarified goals of potential surgical intervention based on surgical/family's input and patient's needs. Will continue serial abdominal exams with potential for abdominal pressures showed ventilator suggest increasing intra-abdominal hypertension. Continue to monitor serial lactic and adjustments made appropriately for mechanical ventilation with additional sedation to optimize synchrony with ventilator. Total critical care time: I personally spent 45 minutes for review of physiologic parameters, directing plan of care overnight, and coordination of care with other specialists. Resident staff notified patient's family throughout the night including worsening hypotension and clinical status with potential need for surgical intervention pending. Patient continues to require critical care services for mixed septic/cardiogenic shock in the setting of ischemic colitis with intra-abdominal mass. This is exclusive of time spent teaching housestaff or performing any separate billable procedures.
[2024-08-14 18:53] LABS: Thyroid Stimulating Hormone 1.68 uIU/mL (0.55-4.78)
[2024-08-14] MEDS: FUROSEMIDE INJ 10 MG/ML 4ML VIAL 40 MG IVP (21:20)
--- NOTE | 2024-08-14 21:21 | XR_ITS ---
Examination: AP chest single view Technique: AP portable supine chest single view Exam date and time: August 14, 2024 2131 hrs. Comparison August 14, 2024 1418 hrs. Indications: Post central line placement Findings: Extensive bilateral lung opacity Mild to moderate enlargement left ventricle Endotracheal tube tip 3.9 cm above krish Right internal jugular central line tip SVC no pneumothorax Orogastric tube in the stomach Impression: Interval insertion right internal jugular central line, tip SVC satisfactory position, no pneumothorax
[2024-08-14 21:28] LABS: Reflex Lactate? Y
[2024-08-14 21:40] LABS: Base Excess -9 (-3-3); HCO3 19 mEq/L (20-26); Inspired Oxygen, FIO2 100 %; O2 Saturation 89 % (91-98); PCO2 48 mmHg (32.0-48.0); PO2 64 mmHg (83-108)
[2024-08-14 21:41] LABS: Allen Test Performed/OK; Puncture Site Right Radial
--- NOTE | 2024-08-14 21:42 | PD.RESPROC ---
Procedures Procedure Date / Time 08/14/242141 Procedure Narrative Procedure Narrative: Attending Attestation: I was not present at the time of my placement though I was made aware. I agree with the plan for central line placement and follow-up x-ray shows adequate placement with no postprocedural pneumothorax. Central Line Placement Right IJ: Indication(s): shock and poor, or inadequate peripheral venous access Informed consent obtained: implied Time out done, and the following verified: correct patient, side and site, procedure, patient position and implants and/or equipment Patient placed on monitor/pulse ox: Yes Hand Hygiene: soap & water and alcohol-based hand rub Max Sterile Barrier Techniques used: cap, mask, sterile gown, sterile gloves and sterile full body drape Central line prep: Chlorhexidine scrub and sterile drapes applied Local anesthesia used: lidocaine 1% Amount of anesthesia used (mL): 5 Ultrasound used for placement: Yes Sterile Technique if Ultrasound used, including sterile gel: yes Central line lumen inserted: triple Post procedure: sutured in place, good blood return, all ports aspirated, flushed, capped and sterile dressing applied Post procedure x-ray: tip of catheter in good position and no pneumothorax seen Patient tolerated procedure: well and no complications EBL(ml): 5 Complications: none Procedure comment: Patient discussed with my attending Dr Aby Tidwell MD PGY-3 Disclaimer: Despite multiple revisions, due to the dictation software being used, the document bellow may not be free of grammatical errors including phonetic/typographic errors. However, this does not deter from our commitment to providing health care in the patient's best interest in mind.
[2024-08-14] MEDS: AZITHROMYCIN INJ 500 MG in SODIUM CHLORIDE 0.9% 250 ML 250 ML 250 MG IV (21:45)
[2024-08-14] MEDS: Vancomycin Inj 1,000 MG in SODIUM CHLORIDE 0.9% 250 ML 250 ML 150 MG IV (21:48)
[2024-08-14] MEDS: Norepinephrine/D5W 8mg/250ml 8 MG/250 ML BAG 10.631 MG IV (21:57)
[2024-08-14] MEDS: metroNIDAZOLE/NS 500 MG IVPB 500 MG/100 ML BAG 200 MG IV (22:00)
[2024-08-14 22:07] LABS: Lactate (Lactic Acid) 5.2 mMol/L (0.4-2.0)
[2024-08-14 22:21] LABS: Troponin I < 0.020 ng/mL (0.0-0.045)
[2024-08-14 22:28] LABS: Ammonia 102 uMol/L (11-32)
[2024-08-14] MEDS: RINGERS LACTATED 1000 ML 1,000 ML 50 ML IV (22:39)
--- NOTE | 2024-08-14 22:43 | PC.RT ---
spo2 improved to 93% when peep increased to 10, pip pressures 30, pat pressures 25. DR. mullins was at bedside assessing pt at 22:20
[2024-08-14] MEDS: CIPROFLOXACIN/D5w 400 MG IVPB 400 MG/200 ML BAG 200 MG IV (23:00)
--- NOTE | 2024-08-14 23:33 | ESCONSULT_ITS ---
HPI Consult details Consult date: 08/14/24 Reason for consultation narrative: Patient was seen on consultation because of septic shock and CT findings of the abdomen showing possible nonspecific colitis History of present illness: Patient was admitted this afternoon because of the respiratory failure and was intubated in the emergency room and subsequently admitted to the ICU. In the ICU she has been requiring some pressors to keep the blood pressure. She is intubated and is not able to give any history of abdominal pain. Obviously also difficult to examine her. She has a history of atrial fibrillation with in the past and has had a stroke in with weakness on the left side she has had history of hypertension and hyperlipidemia and hemiplegia affecting the left side. There is history of abdominal pain when she was in the group home associated with some black stools as per her who is not here to discuss with me. Past Medical History Past Medical History NEUROLOGIC: Positive Cerebrovascular Accident; Negative Neurological Disorders CARDIAC: Positive Cardiac Disorders, Atrial Fibrillation, Hypercholesterolemia, Congestive Heart Failure, Edema, Deep Vein Thrombosis and Hypertension RESPIRATORY: Positive Chronic Obstructive Pulmonary Disease (COPD), Asthma and Sleep Apnea GASTROINTESTINAL: Positive Gastrointestinal Disorders, Gastroesophageal Reflux Disease and Obesity; Negative Hepatitis GENITOURINARY: Negative Genitourinary Disorders or Renal Disease REPRODUCTIVE: Positive Previous Pregnancies MUSCULOSKELETAL: Positive Arthritis; Negative Musculoskeletal Disorders ENDOCRINE: Positive Hypothyroidism; Negative Diabetes Mellitus Type 1 or Diabetes Mellitus Type 2 HEMATOLOGIC: Positive Blood Disorders and Anemia; Negative Sickle Cell Disease PSYCHO/SOCIAL: Positive Depression and Anxiety OTHER HISTORY: Positive Measles and Mumps; Negative Autoimmune Disease, Blood Transfusions, Anesthesia Reactions, MRSA, Human Immunodeficiency Virus (HIV), Chicken Pox, Rubella ([place] Citizen Measles), Pertussis or Clostridium Difficile Surgical History SURGICAL: Negative Cardiac Surgery, Endocrine Surgery, Ear Surgery, Abdominal Surgery or Joint Replacement Social History SMOKING STATUS: Unknown if ever smoked SECOND HAND EXPOSURE: Yes SUBSTANCE USE: does not use Meds Home Medications and Allergies Home Medications ?Medication ?Instructions ?Recorded ?Confirmed ?Type alprazolam 0.5 mg tablet 0.5 mg PO BID 08/20/18 07/07/21 History hydroxyzine HCl 25 mg tablet 25 mg PO QHSPRN PRN Insomnia 08/20/18 07/07/21 History levothyroxine 100 mcg tablet 100 mcg PO QDAY 08/20/18 07/07/21 History buspirone 10 mg tablet 10 mg PO BID 07/07/21 07/07/21 History diltiazem HCl 30 mg tablet 30 mg PO TID 07/07/21 07/07/21 History fluoxetine 20 mg capsule 20 mg PO QDAY 07/07/21 07/07/21 History metoprolol succinate 50 mg 50 mg PO QDAY 07/07/21 07/07/21 History tablet,extended release 24 hr rivaroxaban 20 mg tablet (Xarelto) 20 mg PO QDAY 07/07/21 07/07/21 History Allergies Allergy/AdvReac Type Severity Reaction Status Date / Time Penicillins Allergy Unknown Verified 07/06/21 14:48 hydrocodone AdvReac Mild N/V Verified 07/06/21 14:48 Exam Vital Signs Temp Pulse Resp BP Pulse Ox O2 Del Method FiO2 97.7 F 87 20 82/55 L 93 L Mechanical Ventilation 100 08/14/24 20:10 08/14/24 23:01 08/14/24 20:45 08/14/24 22:45 08/14/24 23:01 08/14/24 17:54 08/14/24 22:13 Narrative Exam Physical examination revealed an morbidly obese white female who is 5 feet 5 inches tall weighing 250 pounds with BMI of 41.6. Patient is not arousable but she winces on deep palpation of the abdomen especially in the lower portion. She still having a blood pressure which is being maintained by Levophed. Her heart rate is 87 Routine Abdominal Exam Comments: Examination of the abdomen shows no significant tenderness but it is difficult to evaluate because of the intubation. She has having black stools after admitting to the ICU. Routine Extremities Exam Comments: Examination of the lower extremities revealed that patient has had diffuse edema of both the lower limbs probably due to fluid retention. Results Results: Laboratory Laboratory Narrative: Laboratory workup showed a WBC of around 11,000. Her lactic acid is 5.2. Results: Imaging Imaging narrative: Patient's chest x-ray shows bilateral diffuse infiltrate with an ARDS picture. CT scan of the abdomen showed nonspecific colitis with thickening of the left colon including the rectum. There is no free air or fluid in the abdomen or distended loops of small bowel Assessment & Plan Additional Assessment Additional comments: Impression: Septic shock possibly due to respiratory and metabolic cause Respiratory failure with hypoxia Hypotension Abdominal pain by history from the Status post CVA Atrial fibrillation Plan Plan: Hospitalist asked me whether she will require exploration just based on the above abdominal CT finding. At this time I do not have the benefit of examining her physically to make the determination of whether she will need exploration. I am limited but based on the CT scan I do not see any need for exploration. There is no on specific thickening of the bowel wall or the colitis pattern is not surgical condition. However her black stools raise some suspicion of ischemic colitis. 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 Meanwhile we will continue this present resuscitation with antibiotics and correction of sepsis. I still may have to explore blindly if her condition gets worse. But at this time based on the CT scan alone patient does not require exploration. I will follow the patient with you
[2024-08-15] VITALS (109 sets, daily range): BP systolic 53–187; BP diastolic 32–104; PULSE 72–118; RESP 20–29; TEMP 36.5–39; O2SAT 74–99; BMI 45.4
--- NOTE | 2024-08-15 00:09 | EVENTNT_ITS ---
Documentation for date of: 08/15/24 Event Note Event Note: Around 22:30 p.m. I contacted the patient [facility] to gather more information about what happened before coming to the ED. Per nursing notes at the facility this morning patient did not have any complaints she was at baseline without any complaints. Around 10: 30 AM patient stated that she was not feeling well and became diaphoretic, tachycardic, hypotensive saturations were not obtainable at that time and moaning and unresponsive per the nursing staff yellow secretion came out of her mouth, they noticed as well black tarry stools with spots of tinged blood. I spoke as well with the patient Yelitza key who stated that 2 days previous to the episode patient was complaining of abdominal pain. General surgery was consulted due to concerns of the CT chest/abdomen/pelvis that showed unspecified colitis vs
[2024-08-15 00:44] LABS: Lactate (Lactic Acid) 6.4 mMol/L (0.4-2.0)
[2024-08-15] MEDS: INSULIN LISPRO (AdmeLOG) 1 UNIT/0.01 ML UNIT SC (00:46)
[2024-08-15 00:51] LABS: Basophils # (Auto) 0.1 Thou/mm3 (0.0-0.2); Basophils % (Auto) 0 % (0-2.5); Eosinophils % (Auto) 0 % (0-10); Hematocrit 39.2 % (36.0-46.0); Hemoglobin 11.2 g/dL (12.0-16.0); Immature Granulocytes % (Auto) 1 % (0-0); Immature Granulocytes Auto 0.22 Thou/mm3 (0.00-0.00); Lymphocytes # (Auto) 2.2 Thou/mm3 (1.0-4.8); Lymphocytes % (Auto) 9 % (10-50); Mean Corpuscular HGB Conc 28.6 g/dl (31.0-37.0); Mean Corpuscular Hemoglobin 25.6 pg (25.0-35.0); Mean Corpuscular Volume 90 fL (80-100); Monocytes # (Auto) 1.2 Thou/mm3 (0.0-0.8); Monocytes % (Auto) 5 % (0-12); Neutrophils # (Auto) 21.8 Thou/mm3 (1.8-7.7); Neutrophils % (Auto) 86 % (37-80); Nucleated Red Blood Cell % 0 /100 WBC (0); Platelet Count 857 Thou/mm3 (140-440); RDW Standard Deviation 66.9 fL (36.4-46.3); Red Blood Count 4.37 Miln/mm3 (4.00-5.20); White Blood Count 25.5 Thou/mm3 (3.6-11.0)
[2024-08-15 00:54] LABS: Reflex Lactate? Y
--- NOTE | 2024-08-15 01:18 | XR_ITS ---
Examination: AP chest single view Technique one AP portable semiupright chest single view Exam date and time: August 15, 2024 0125 hrs. Comparison August 14, 2024 Indications: Decreasing O2 saturation, hypoxia, hypoxic respiratory failure, extensive bilateral pneumonia with mild heart failure on earlier chest imaging this week, post intubation Findings: Extensive bilateral pneumonia Mild associated heart failure Right internal blood or central line tip SVC satisfactory position Endotracheal tube tip 4.9 cm above krish The orogastric tube is in the stomach satisfactory position Impression: No improvement in extensive bilateral pneumonia and mild associated heart failure
[2024-08-15] MEDS: MIDAZOLAM INJ 1 MG/ML VIAL 2 ML 4 MG IV (01:19)
[2024-08-15] MEDS: ROCURONIUM INJ 10 MG/ML VIAL 10 ML 50 MG IVP (01:24)
[2024-08-15 01:38] LABS: Base Excess -13 (-3-3); HCO3 15 mEq/L (20-26); Inspired Oxygen, FIO2 21 %; O2 Saturation 85 % (91-98); PCO2 42 mmHg (32.0-48.0)
--- NOTE | 2024-08-15 01:38 | PC.RT ---
pt spo2 dropped to the low 80s, ventilated the pt with an ambu bag for over 15 min spo2 did not improved abg drawn while pt being ventilated with an ambu bag place back on vent due to spo2 not improving, peep increased to 12, fio2 100% endtidal co2 31, spo2 at 90%, DR. mullins at bedside.
[2024-08-15 01:40] LABS: Allen Test Performed/OK; Puncture Site Right Radial
[2024-08-15 01:41] LABS: pH, Arterial 7.17 (7.35-7.45)
[2024-08-15 01:42] LABS: PO2 57 mmHg (83-108)
[2024-08-15 01:43] LABS: Alanine Aminotransferase 25 U/L (10-49); Albumin, Serum 2.1 gm/dL (3.5-5.0); Albumin/Globulin Ratio 0.7 (1.2-2.2); Alkaline Phosphatase 204 U/L (46-116); Anion Gap 14 (7-16); Aspartate Amino Transferase 50 U/L (0-34); BUN/Creatinine Ratio 28 Ratio (12-20); Bilirubin,Total 0.7 mg/dL (0.3-1.2); Blood Urea Nitrogen 39 mg/dL (9-23); Calcium 8.1 mg/dL (8.3-10.6); Calcium (Corrected) 9.6 mg/dL (8.5-10.1); Carbon Dioxide 18.1 mMol/L (20.0-31.0); Chloride 101 mMol/L (98-107); Creatine Kinase 27 U/L (34-171); Creatinine (Component) 1.4 mg/dL (0.6-1.3); Estimated Creatinine Clearance 55.7 mL/min (>60); Globulin 2.9 gm/dL (2.3-3.5); Glucose 163 mg/dL (74-106); Magnesium 2.6 mg/dL (1.6-2.6); Osmolality,Calculated 279 (275-295); Phosphorous 5.8 mg/dL (2.4-5.1); Potassium 3.8 mMol/L (3.4-5.1); Sodium 133 mMol/L (136-145); eGFR 44 See Note
[2024-08-15] MEDS: PROPOFOL 1,000 MG IVPB 1,000 MG/100 ML VIAL 10.206 MG IV ×2 (01:45→13:15)
[2024-08-15] MEDS: fentaNYL 2,500 MCG/250 ML BAG 2,500 MCG/250 ML BAG 10 MCG IV (01:45)
--- NOTE | 2024-08-15 01:45 | PC.RT ---
peep increased to 12 after abg drawn.
--- NOTE | 2024-08-15 01:48 | PC.RT ---
RR increased to 24 post abg results.
--- NOTE | 2024-08-15 01:49 | PC.RT ---
Dr. mullins at bedside aware spo2 89% at this time
[2024-08-15] MEDS: CISATRACURIUM INJ 200 MG in SODIUM CHLORIDE 0.9% 500 ML 500 ML 17.69 MG IV (02:09)
[2024-08-15] MEDS: LACTULOSE SYRUP 20 GM/30 ML UDC GT ×2 (02:21→05:27)
[2024-08-15 02:48] LABS: Lactate (Lactic Acid) 8.4 mMol/L (0.4-2.0)
[2024-08-15] MEDS: Sodium Bicarb 8.4% 50ml Vial* 88.23 MEQ in DEXTROSE 5%-WATER 500 ML 50 MEQ IV (02:49)
[2024-08-15] MEDS: Sodium Bicarb Inj 8.4% SYR 50 ML SYRINGE IV ×2 (03:07→20:33)
[2024-08-15] MEDS: VASOPRESSIN IN NS IVPB 20 UNIT/100 ML BAG 9 UNIT IV ×3 (03:11→23:48)
[2024-08-15 03:32] LABS: Reflex Lactate? Y
[2024-08-15 03:37] LABS: Base Excess -10 (-3-3); HCO3 18 mEq/L (20-26); Inspired Oxygen, FIO2 21 %; O2 Saturation 93 % (91-98); PCO2 46 mmHg (32.0-48.0); PO2 75 mmHg (83-108)
[2024-08-15 03:41] LABS: Allen Test Performed/OK; Puncture Site Right Brachial
[2024-08-15] MEDS: Norepinephrine/NS 16mg/250ml 16 MG/250 ML BAG 54.218 MG IV (04:00)
--- NOTE | 2024-08-15 04:17 | PC.RT ---
at 19:55 received Report from RT jameson, went to assess pt, setting on ACVC of 450, RR20, peep of 5, 100% fio2 pt on a continuous endtidal co2, hr 85, spo2 90%, auscultated on bases and RUL fine crackles otherwise diminish, ETT 7.0 found at 23 at the teeth secure in place, DR. collado aware of pt spo2 and at bedside at that time.
--- NOTE | 2024-08-15 04:32 | EVENTNT_ITS ---
Documentation for date of: 08/15/24 Event Note Event Note: At 4:15 AM patient started to desat to 84% despite being paralyzed with Nimbex and deep sedation as well as being connected to the ventilator with FiO2 100% restart back the patient for around 15 minutes without improvement in oxygen for which was connected back to the vent, after repositioning the patient the O2 sats when back up to 94%. BP 53/37 MAP 49 HR. repeat labs showed leukocytosis uptrending to 25.5 hemoglobin downtrending 11.2, thrombocytosis 857, ABGs showed metabolic acidosis with a pH of 7.20 pCO2 46 pO2 75 bicarb 18, patient is anuric with less than 10 cc/h, bicarb drip was started, lactic acid has been uptrending 8.4. I called family member and decision-maker patient Chalo Ceballos about the patient current situation and in case Mrs Rossi becomes more unstable and in case she had a cardiopulmonary arrest how he would like us to proceed; he stated that he would like everything possible to be done and will honor patient family member wishes and patient CODE STATUS will remain full code. Patient discussed with my attending Dr Starr Tidwell MD PGY-3 Disclaimer: Despite multiple revisions, due to the dictation software being used, the document bellow may not be free of grammatical errors including phonetic/typographic errors. However, this does not deter from our commitment to providing health care in the patient's best interest in mind. Patient' s BP reading low plan is for A line, on pressors met acidosis, anuric as well, Nephrlogy consult for [employer]? Gen Surgery followingas well, no plans for surgery- but maybe now it can be reconsidered ? -defer to surgeron. Patient is really sick and has very high risk mortality with or without surgical intervention if this is ischemic bowel unfortunately.
--- NOTE | 2024-08-15 04:36 | PC.RT ---
pt sats dropping in the low 80s, 84-85% started ventilating pt with ambu bag at 100% fio2 for about 10 min sats did not improved place pt back on ventilator with current settings acvc 450, RR24, fio2 100% peep of 12, no other changes spo2 at 84-86% DR. mullins at bedside.
--- NOTE | 2024-08-15 04:51 | PC.RT ---
spo2 improved to 90s when positioning pt head to the left.
--- NOTE | 2024-08-15 05:07 | PC.NURSE ---
Since 01:31 this morning (08/15/24), we have been unable to obtain blood pressures. MD NOBLE is present at the bedside and aware of the situation, as well as the ICU charger operator. MD NOBLE has been unable to start an arterial-line at this time.
--- NOTE | 2024-08-15 05:11 | PD.RESEVENT ---
Documentation for date of: 08/15/24 Event Note Event Note: 05:11 am patient BP 73/58 with a MAP 57 despite being on vasopressin and Levophed gtt. I Call the ED physician for arterial line supervision otherwise they stated that the ED is busy at this time with multiple sick patients for which they are not able to come to the ICU unit to supervise arterial line insertion. Patient discussed with my attending Dr Starr Tidwell MD PGY-3 Disclaimer: Despite multiple revisions, due to the dictation software being used, the document bellow may not be free of grammatical errors including phonetic/typographic errors. However, this does not deter from our commitment to providing health care in the patient's best interest in mind. Waiting for A line, on pressors Dr Riley to be updated about the current course- in his note he mentioned possibility of exploring patient blindly if scope is not able to be done.
[2024-08-15 05:15] LABS: Base Excess -13 (-3-3); HCO3 16 mEq/L (20-26); Inspired Oxygen, FIO2 100 %; O2 Saturation 97 % (91-98); PCO2 43 mmHg (32.0-48.0); PO2 103 mmHg (83-108)
[2024-08-15 05:19] LABS: Allen Test Performed/OK; Puncture Site Right Brachial
[2024-08-15 05:20] LABS: pH, Arterial 7.17 (7.35-7.45)
[2024-08-15] MEDS: HYDROCORTISONE SOD SUCC INJ 100 MG VIAL 50 MG IV ×3 (05:27→17:39)
[2024-08-15] MEDS: CIPROFLOXACIN/D5w 400 MG IVPB 400 MG/200 ML BAG 200 MG IV ×3 (05:27→21:52)
[2024-08-15] MEDS: metroNIDAZOLE/NS 500 MG IVPB 500 MG/100 ML BAG 200 MG IV ×3 (05:27→21:53)
[2024-08-15 05:37] LABS: Reflex Lactate? Y
[2024-08-15] MEDS: Norepinephrine/NS 16mg/250ml 16 MG/250 ML BAG 212.621 MG IV (05:54)
--- NOTE | 2024-08-15 06:12 | PD.RESEVENT ---
Documentation for date of: 08/15/24 Event Note Event Note: At 5:40 am I called general surgery due to patient overall clinical condition is not improving for which they will contact anesthesiologist to come to evaluate if patient is stable enough to go to the OR for exploratory laparotomy. Patient discussed with my attending Dr Aby Tidwell MD PGY-3 disclaimer: Despite multiple revisions, due to the dictation software being used, the document bellow may not be free of grammatical errors including phonetic/typographic errors. However, this does not deter from our commitment to providing health care in the patient's best interest in mind.
[2024-08-15 06:21] LABS: INR 1.4 (0.9-1.3); Partial Thromboplastin Time 28.5 Seconds (22.0-36.0); Prothrombin Time 15.3 Seconds (9.0-12.2)
[2024-08-15 06:24] LABS: Glucose Estimated Average 85 mg/dL (80-131); Hemoglobin A1C 4.6 % Hgb (4.8-6.0)
[2024-08-15] MEDS: CALCIUM GLUCONATE 10% INJ 1 GM/10 ML VIAL IV (06:33)
[2024-08-15 06:49] LABS: Lactate (Lactic Acid) 7.6 mMol/L (0.4-2.0)
[2024-08-15 07:17] LABS: Alanine Aminotransferase 48 U/L (10-49); Albumin, Serum 2.4 gm/dL (3.5-5.0); Albumin/Globulin Ratio 0.7 (1.2-2.2); Alkaline Phosphatase 225 U/L (46-116); Anion Gap 21 (7-16); Aspartate Amino Transferase 126 U/L (0-34); BUN/Creatinine Ratio 20 Ratio (12-20); Bilirubin,Total 0.8 mg/dL (0.3-1.2); Blood Urea Nitrogen 34 mg/dL (9-23); Calcium 8.5 mg/dL (8.3-10.6); Calcium (Corrected) 9.8 mg/dL (8.5-10.1); Chloride 100 mMol/L (98-107); Creatinine (Component) 1.7 mg/dL (0.6-1.3); Estimated Creatinine Clearance 48.3 mL/min (>60); Globulin 3.5 gm/dL (2.3-3.5); Glucose 153 mg/dL (74-106); Magnesium 2.9 mg/dL (1.6-2.6); Osmolality,Calculated 273 (275-295); Phosphorous 6.5 mg/dL (2.4-5.1); Potassium 4.7 mMol/L (3.4-5.1); Sodium 131 mMol/L (136-145); Total Protein 5.9 gm/dL (5.7-8.2); eGFR 35 See Note
[2024-08-15 07:19] LABS: Carbon Dioxide 10.3 mMol/L (20.0-31.0)
[2024-08-15] MEDS: Norepinephrine/NS 16mg/250ml 16 MG/250 ML BAG 127.573 MG IV ×2 (07:38→19:01)
[2024-08-15 07:53] LABS: Basophils # (Auto) 0.2 Thou/mm3 (0.0-0.2); Basophils % (Auto) 0 % (0-2.5); Eosinophils # (Auto) 0.2 Thou/mm3 (0.0-0.5); Eosinophils % (Auto) 1 % (0-10); Hematocrit 43.2 % (36.0-46.0); Hemoglobin 12.1 g/dL (12.0-16.0); Immature Granulocytes % (Auto) 2 % (0-0); Immature Granulocytes Auto 0.87 Thou/mm3 (0.00-0.00); Lymphocytes # (Auto) 1.7 Thou/mm3 (1.0-4.8); Lymphocytes % (Auto) 5 % (10-50); Mean Corpuscular Hemoglobin 25.4 pg (25.0-35.0); Mean Corpuscular Volume 91 fL (80-100); Monocytes # (Auto) 1.7 Thou/mm3 (0.0-0.8); Monocytes % (Auto) 5 % (0-12); Neutrophils # (Auto) 32.4 Thou/mm3 (1.8-7.7); Neutrophils % (Auto) 87 % (37-80); Nucleated Red Blood Cell # 0.03 Thou/mm3 (0.00-0.00); Nucleated Red Blood Cell % 0 /100 WBC (0); Red Blood Count 4.76 Miln/mm3 (4.00-5.20)
--- NOTE | 2024-08-15 08:02 | ESPR_ITS ---
Documentation for date of: 08/15/24 Subjective Subjective Brief History: Patient was admitted this afternoon because of the respiratory failure and was intubated in the emergency room and subsequently admitted to the ICU. In the ICU she has been requiring some pressors to keep the blood pressure. She is intubated and is not able to give any history of abdominal pain. Obviously also difficult to examine her. She has a history of atrial fibrillation with in the past and has had a stroke in with weakness on the left side she has had history of hypertension and hyperlipidemia and hemiplegia affecting the left side. There is history of abdominal pain when she was in the long-term associated with some black stools as per her who is not here to discuss with me. Narrative: The patient's condition has deteriorated during the night. She is still not responsive obviously due to intubation and sedation. She is having dark stools on the rectal tube. She is requiring more vasopressors to keep her blood pressure up. Her urinary output is scanty and deangelo-colored. Arterial blood gas show pH of 7.1 with base excess -30 Exam Vital Signs Temp Pulse Resp BP Pulse Ox O2 Del Method FiO2 100.0 F 101 H 20 149/86 H 95 Mechanical Ventilation 100 08/15/24 04:06 08/15/24 07:38 08/14/24 20:45 08/15/24 07:38 08/15/24 07:30 08/15/24 07:00 08/15/24 07:00 Routine Abdominal Exam Comments: Abdominal exam once again is difficult to evaluate Assessment & Plan Assessment Additional comments: Impression: Patient may have some intra-abdominal ischemic process secondary to atrial fibrillation and embolization. Septic shock Bilateral pneumonia and ARDS Morbid obesity Plan Plan: Patient's condition is moribund and I do not think she will survive an exploration and even resection of necrotic bowel. Her postoperative course will be very unstable on for she will eventually succumb to a postoperative complications. This was explained to the patient's and the son who are at bedside even there is a small chance of saving here the family wants to explore. With her weight around 250 pounds exploration is not easy and she will probably be more and stable after surgery. This was explained to them and they seem to be still interested in having everything done even a remote chance of survival. I explained to them that she may end up with a colostomy. I plan to do laparoscopy first to see if we can avoid exploration either if there is a considerable amount of bowel and we will not operate. If she does not have any ischemia then we will not explore her. But the anesthesiologist Dr. Larsen feels that she will not tolerate laparoscopic. Therefore we are going to explore her today.
[2024-08-15 08:12] LABS: Reflex Lactate? Y
[2024-08-15 08:21] LABS: Lactic Acid, 3 HR 12.6 mMol/L (0.4-2.0)
[2024-08-15 08:23] LABS: Platelet Count 1037 Thou/mm3 (140-440)
[2024-08-15 08:44] LABS: Path Review Blood Smear Sent to Pathologist
[2024-08-15] MEDS: Norepinephrine/NS 16mg/250ml 16 MG/250 ML BAG 106.311 MG IV (08:46)
--- NOTE | 2024-08-15 08:46 | PC.NURSE ---
PATIENT TAKEN TO OR AT THIS TIME.
--- NOTE | 2024-08-15 09:39 | PD.INTPROC ---
Procedures Procedure Date / Time 08/15/24 939 Arterial Line Indication(s): frequent arterial line sampling, hypoxic resp failure, shock and inability to monitor non-invasive BP Informed consent obtained: obtained from surrogate decision maker Time out done, and the following verified: correct patient, side and site, procedure and patient position Size (Gauge): 14 Technique used: guide wire technique Post-Procedure: line sutured into place and dry sterile dressing placed Patient tolerated procedure: well and no complications EBL(ml): 10 Complications: none Site: right and femoral Procedure comment: Ultrasound was used to identify correct vessel for the access and ensure appropriate placement Of Guidewire Prior to Placement of catheter.
[2024-08-15 11:18] LABS: Base Excess -25 (-3-3); HCO3 8 mEq/L (20-26); PCO2 47 mmHg (32.0-48.0); PO2 138 mmHg (83-108)
[2024-08-15 11:22] LABS: Allen Test Not Performed; Puncture Site Right Femoral
[2024-08-15 11:23] LABS: Inspired Oxygen, FIO2 100 %; O2 Saturation 97 % (91-98)
[2024-08-15 11:24] LABS: pH, Arterial 6.84 (7.35-7.45)
--- NOTE | 2024-08-15 12:01 | ESCONSULT_ITS ---
HPI Data of Consult Consult date: 08/15/24 Requesting Physician: Haris Clements MD Admitting Provider: Maynor Badillo MD Attending Provider: Haris Clements MD Primary Care Provider: Physician No Primary/Family Consult Narrative Reason for consult: QASIM, severe acidosis, need for renal replacement therapy History of present illness: The patient is a 59-year-old female with a previous medical history of CHF, A- fib, hypertension, COPD, CVA with residual left-sided hemiparesis who was brought in by ambulance from detention due to altered mental status. ED course: In the ED blood pressure 77/39, saturation 71% on room air. Her mental status severely declined and patient was intubated due to acute hypoxic respiratory failure. She was noticed to have black stool, FOBT was positive. She was started on fluids, antibiotics and Protonix in the ED. Head CT was unremarkable, chest abdomen pelvis CT showed significant bilateral pneumonia, significant diffuse nonspecific colitis proctitis pattern. Surgeon Dr. Butt was consulted on 08/14/2024, recommended no surgical explanation at that point of time, continue with antibiotics. Overnight her condition continues to worsen, she was not able to maintain MAP, pressor requirements continued to grow, lactate continued to grow, kidney functions worsened, no significant urine output in he last 6 hours and more. 08/15/[address] Riley decided to proceed with explorative laparotomy. Finished Cloth Examiner Dr. Vega was consulted for QASIM, severe metabolic acidosis and the possibility for renal replacement therapy. 08/15/24: Patient was transferred for explorative laparotomy. Dr Riley had a discussion regarding poor outcome and possibility of mortality on the intra- and post-operative period and family decided to proceed with treatment. Will continue to monitor patient in the post-operative period for now and will proceed with renal replacement therapy if needed. cc:: cc: Haris Clements MD Review of Systems Review of Systems ROS Unobtainable: unobtainable due to mental status and unobtainable due to medical condition Past Medical History Past Medical History NEUROLOGIC: Positive Cerebrovascular Accident; Negative Neurological Disorders CARDIAC: Positive Cardiac Disorders, Atrial Fibrillation, Hypercholesterolemia, Congestive Heart Failure, Edema, Deep Vein Thrombosis and Hypertension RESPIRATORY: Positive Chronic Obstructive Pulmonary Disease (COPD), Asthma and Sleep Apnea GASTROINTESTINAL: Positive Gastrointestinal Disorders, Gastroesophageal Reflux Disease and Obesity; Negative Hepatitis GENITOURINARY: Negative Genitourinary Disorders or Renal Disease REPRODUCTIVE: Positive Previous Pregnancies MUSCULOSKELETAL: Positive Arthritis; Negative Musculoskeletal Disorders ENDOCRINE: Positive Hypothyroidism; Negative Diabetes Mellitus Type 1 or Diabetes Mellitus Type 2 HEMATOLOGIC: Positive Blood Disorders and Anemia; Negative Sickle Cell Disease PSYCHO/SOCIAL: Positive Depression and Anxiety OTHER HISTORY: Positive Measles and Mumps; Negative Autoimmune Disease, Blood Transfusions, Anesthesia Reactions, MRSA, Human Immunodeficiency Virus (HIV), Chicken Pox, Rubella (Lao Measles), Pertussis or Clostridium Difficile Surgical History SURGICAL: Negative Cardiac Surgery, Endocrine Surgery, Ear Surgery, Abdominal Surgery or Joint Replacement Social History SMOKING STATUS: Unknown if ever smoked SECOND HAND EXPOSURE: Yes SUBSTANCE USE: does not use Exam Vital Signs Temp Pulse Resp BP Pulse Ox O2 Del Method FiO2 102.2 F H 96 20 104/75 85 L Mechanical Ventilation 100 08/15/24 08:00 08/15/24 08:46 08/14/24 20:45 08/15/24 08:46 08/15/24 08:46 08/15/24 08:00 08/15/24 08:00 Narrative Exam Physical Exam General: Intubated, sedated and paralyzed. Pale, ill-appearing. BMI 45.5. HEENT: Normocephalic, atraumatic, mucous membranes moist. Heart: Regular rate and rhythm, no murmurs. Lungs: Distal lung sounds due to body habitus. Abdomen: Soft, nondistended, nontender, positive bowel sounds. ?No guarding or rebound tenderness. Neurologic: Impossible to assess due to sedation and paralytics. Extremities: 2+ bilateral lower extremity edema. Skin: No rash or ecchymoses. Results Labs 08/16/24 07:50 08/16/24 06:40 Labs: Short CBC 08/14/24 08/15/24 08/15/24 Range/Units 14:20 00:05 05:19 WBC 11.0 25.5 H D 37.0 H* D (3.6-11.0) Thou/mm3 Hgb 12.7 11.2 L 12.1 (12.0-16.0) g/dL Hct 43.6 39.2 43.2 (36.0-46.0) % Plt Count 971 H 857 H D 1037 H* D (140-440) Thou/mm3 BMP 12/08/15/24 08/15/24 14:20 00:05 05:19 Sodium 132 L 133 L 131 L Potassium 4.0 3.8 4.7 D Chloride 100 101 100 Carbon Dioxide 19.1 L 18.1 L 10.3 L* BUN 34 H 39 H 34 H Creatinine 1.4 H 1.4 H 1.7 H Glucose 139 H 163 H 153 H Calcium 8.3 8.1 L 8.5 Cardiac Enzymes 08/14/24 08/14/24 08/15/24 Range/Units 14:20 21:43 00:05 Total Creatine Kinase 27 L (34-171) U/L Troponin I < 0.020 < 0.020 (0.0-0.045) ng/mL Liver Function 08/14/24 08/15/24 08/15/24 Range/Units 14:20 00:05 05:19 Total Bilirubin 0.6 0.7 0.8 (0.3-1.2) mg/dL AST 74 H 50 H 126 H (0-34) U/L ALT 24 25 48 (10-49) U/L Alkaline Phosphatase 271 H 204 H D 225 H D (46-116) U/L Albumin 2.4 L 2.1 L 2.4 L (3.5-5.0) gm/dL Urine 08/14/24 Range/Units 14:00 Urine Color Yellow (Lt Yel-Yel) Urine Clarity Clear (Clear/Hazy) Urine pH 5.5 (5.0-7.0) Ur Specific Banks 1.020 (1.001-1.035) Urine Protein Negative (Neg - Trace) Urine Glucose (UA) Negative (Negative) ABG Interpretation ABG results: 08/14/24 08/14/24 08/14/24 13:56 18:03 21:30 ABG pH 7.12 L* 7.15 L* 7.20 L ABG pCO2 57 H 58 H 48 D ABG pO2 80 L 69 L 64 L ABG HCO3 19 L 20 19 L ABG O2 Saturation 98 90 L 89 L ABG Base Excess -11 L -9 L -9 L 08/15/24 08/15/24 08/15/24 01:30 03:30 05:03 ABG pH 7.17 L* 7.20 L 7.17 L* ABG pCO2 42 46 43 ABG pO2 57 L* 75 L 103 D ABG HCO3 15 L 18 L 16 L ABG O2 Saturation 85 L 93 97 ABG Base Excess -13 L -10 L -13 L 08/15/24 11:08 ABG pH 6.84 L* D ABG pCO2 47 ABG pO2 138 H D ABG HCO3 8 L* ABG O2 Saturation 97 ABG Base Excess -25 L Quality Measures Quality Measures VTE prophylaxis Medications Home Medications and Allergies Home Medications ?Medication ?Instructions ?Recorded ?Confirmed ?Type alprazolam 0.5 mg tablet 0.5 mg PO BID 08/20/18 07/07/21 History hydroxyzine HCl 25 mg tablet 25 mg PO QHSPRN PRN Insomnia 08/20/18 07/07/21 History levothyroxine 100 mcg tablet 100 mcg PO QDAY 08/20/18 07/07/21 History buspirone 10 mg tablet 10 mg PO BID 07/07/21 07/07/21 History diltiazem HCl 30 mg tablet 30 mg PO TID 07/07/21 07/07/21 History fluoxetine 20 mg capsule 20 mg PO QDAY 07/07/21 07/07/21 History metoprolol succinate 50 mg 50 mg PO QDAY 07/07/21 07/07/21 History tablet,extended release 24 hr rivaroxaban 20 mg tablet (Xarelto) 20 mg PO QDAY 07/07/21 07/07/21 History Allergies Allergy/AdvReac Type Severity Reaction Status Date / Time Penicillins Allergy Unknown Verified 07/06/21 14:48 hydrocodone AdvReac Mild N/V Verified 07/06/21 14:48 Visit Medications Acetaminophen (Acetaminophen 325 Mg Tablet) 650 mg PO Q4HR PRN PRN Reason: PAIN SCALE 1-3 (mild Stop: 09/13/24 17:20 Acetaminophen (Acetaminophen Supp 650 Mg Supp) 650 mg KS Q4HR PRN PRN Reason: PAIN SCALE 1-3 (mild Stop: 09/13/24 17:20 Al Hydrox/Mg Hydrox/Simethicone (Mg Hyd/Al Hyd/Nolan (Maalox Reg) Susp 30 Ml Udc) 30 ml PO Q4HR PRN PRN Reason: Heartburn or Upset Stomach Stop: 09/13/24 17:20 Albuterol/Ipratropium (Albuterol/Ipratropium (Duoneb) Rt Velma 3 Ml Nebu) 3 ml INH Q4HRRT [facility]STANCE Stop: 09/14/24 10:59 Dextrose (Dextrose 50%-Water Inj 50 Ml Syringe) 25 ml IV Q15MIN PRN PRN Reason: BG 50-70 responsive npo pt Stop: 09/13/24 17:44 Dextrose (Dextrose 50%-Water Inj 50 Ml Syringe) 50 ml IV Q15MIN PRN PRN Reason: BG <50 OR BG <70 & pt unresponsive Stop: 09/13/24 17:44 Hydrocortisone Sodium Succinate (Hydrocortisone Sod Succ Inj 100 Mg Vial) 50 mg IV Q6HR [facility]STANCE Stop: 09/14/24 05:59 Last Admin: 08/15/24 05:27 Dose: 50 mg Azithromycin 500 mg/ Sodium (Chloride) 250 mls @ 250 mls/hr IV QDAY@1400 [facility] Stop: 08/21/24 17:33 Last Infusion: 08/15/24 07:39 Dose: Infused Metronidazole (Flagyl 500 Mg Iv) 500 mg in 100 mls @ 200 mls/hr IV Q8HR [facility] Stop: 08/21/24 21:35 Last Infusion: 08/15/24 07:39 Dose: Infused Ciprofloxacin/Dextrose (Cipro Ivpb) 400 mg in 200 mls @ 200 mls/hr IV Q8HR [facility] Stop: 08/21/24 21:59 Last Infusion: 08/15/24 07:39 Dose: Infused Cisatracurium Besylate 200 mg/ (Sodium Chloride) 520 mls @ 17.69 mls/hr IV .Q24H PRN; Protocol PRN Reason: Per Protocol Stop: 09/14/24 01:25 Last Titration: 08/15/24 07:00 Dose: 1.25 mcg/kg/min, 22.113 mls/hr Propofol (Diprivan Ivpb) 1,000 mg in 100 mls @ 3.402 mls/hr IV .Q24H PRN; Protocol PRN Reason: PER PROTOCOL Stop: 09/13/24 17:36 Last Titration: 08/15/24 08:46 Dose: 0 mcg/kg/min, 0 mls/hr Fentanyl Citrate (Sublimaze Inj 2,500 Mcg/250 Ml Bag) 2,500 mcg in 250 mls @ 2.5 mls/hr IV .Q24H PRN; Protocol PRN Reason: PER PROTOCOL Stop: 08/19/24 17:20 Last Titration: 08/15/24 08:46 Dose: 0 mcg/hr, 0 mls/hr Vasopressin/Sodium Chloride (Vasostrict/Ns Ivpb) 20 unit in 100 mls @ 9 mls/hr IV .Q11H7M PRN; Protocol PRN Reason: PER PROTOCOL Stop: 09/14/24 02:07 Last Admin: 08/15/24 03:11 Dose: 0.03 unit/min, 9 mls/hr Sodium Bicarbonate 88.23 meq/ (Dextrose) 588.23 mls @ 50 mls/hr IV .[id number] [facility] Stop: 09/14/24 02:08 Last Admin: 08/15/24 02:49 Dose: 50 mls/hr Norepinephrine Bitartrate (Levophed In Ns 16mg/250ml) 16 mg in 250 mls @ 5.316 mls/hr IV .Q24H PRN; Protocol PRN Reason: PER PROTOCOL Stop: 09/14/24 03:50 Last Admin: 08/15/24 08:46 Dose: 1 mcg/kg/min, 106.311 mls/hr Insulin Human Lispro (Insulin Lispro (Admelog) 1 Unit/0.01 Ml Unit) 0 unit SC Q6HR [facility]; Protocol Stop: 09/14/24 00:00 Last Admin: 08/15/24 05:43 Dose: Not Given Lactulose (Lactulose Syrup 20 Gm/30 Ml Udc) 20 gm GT TID [facility]; Protocol Stop: 09/14/24 00:59 Last Admin: 08/15/24 05:27 Dose: 20 gm Magnesium Hydroxide (Milk Of Magnesia Susp 30 Ml Udc) 30 ml PO QDAY PRN PRN Reason: CONSTIPATION Stop: 09/13/24 17:20 Nitroglycerin (Nitroglycerin 0.4 Mg Subl Btl #25) 0.4 mg SL Q5MIN PRN PRN Reason: CHEST PAIN Ondansetron HCl (Ondansetron Inj 2 Mg/Ml Inj 2 Ml) 4 mg IV Q8HR PRN PRN Reason: NAUSEA OR VOMITING Stop: 09/13/24 17:20 Pantoprazole Sodium (Pantoprazole Inj 40 Mg Vial) 40 mg IV QDAY [facility] Stop: 09/14/24 08:59 Discontinued Medications Calcium Gluconate (Calcium Gluconate 10% Inj 1 Gm/10 Ml Vial) 1 gm IV X1 ONE Stop: 08/15/24 06:27 Last Admin: 08/15/24 06:33 Dose: 1 gm Etomidate (Etomidate Inj 2 Mg/Ml Vial 10 Ml) 20 mg IVP X1 ONE Stop: 08/14/24 13:06 Last Admin: 08/14/24 13:10 Dose: 20 mg Furosemide (Furosemide Inj 10 Mg/Ml 4ml Vial) 40 mg IVP X1 ONE Stop: 08/14/24 18:57 Last Admin: 08/14/24 21:20 Dose: 40 mg Heparin Sodium (Porcine) (Heparin Sod Inj 5000 Unit/Ml Vial) 5,000 unit SC Q8HR [facility] Stop: 08/28/24 21:59 Sodium Chloride (Ns) 1,000 mls @ 999 mls/hr IV .Q1H1M ONE Stop: 08/14/24 14:37 Last Infusion: 08/14/24 14:39 Dose: Infused Ceftriaxone Sodium/Dextrose (Rocephin/D5w 1gm Iv Premix) 50 mls @ 100 mls/hr IV X1 ONE Stop: 08/14/24 17:14 Last Infusion: 08/14/24 19:20 Dose: Infused Vancomycin HCl 1,000 mg/ (Sodium Chloride) 250 mls @ 150 mls/hr IV X1 ONE Stop: 08/14/24 18:24 Last Infusion: 08/15/24 07:39 Dose: Infused Fentanyl Citrate (Sublimaze Inj 2,500 Mcg/250 Ml Bag) 2,500 mcg in 250 mls @ 2.5 mls/hr IV .Q24H PRN; Protocol PRN Reason: PER PROTOCOL Stop: 08/19/24 17:20 Propofol (Diprivan Ivpb) 1,000 mg in 100 mls @ 3.402 mls/hr IV .Q24H PRN; Protocol PRN Reason: PER PROTOCOL Stop: 09/13/24 17:36 Ceftriaxone Sodium/Dextrose (Rocephin/D5w 1gm Iv Premix) 50 mls @ 100 mls/hr IV QDAY@1400 [facility] Stop: 08/22/24 13:59 Norepinephrine/Dextrose (Levophed In D5w 8mg/250ml) 8 mg in 250 mls @ 10.631 mls/hr IV .[id number] PRN; Protocol PRN Reason: PER PROTOCOL Stop: 09/13/24 18:55 Last Titration: 08/15/24 04:00 Dose: Infused Piperacillin Sod/Tazobactam (Sod 3.375 gm/ Sodium Chloride) 50 mls @ 100 mls/hr IV Q8HR [facility] Stop: 08/21/24 21:31 Last Admin: 08/14/24 22:17 Dose: Not Given Piperacillin Sod/Tazobactam (Sod 3.375 gm/ Sodium Chloride) 50 mls @ 100 mls/hr IV X1 ONE Stop: 08/14/24 22:04 Ceftriaxone Sodium 2 gm/ (Sodium Chloride) 50 mls @ 100 mls/hr IV QDAY [facility] Stop: 08/22/24 08:59 Lactated Ringer's (Lactated Ringers) 1,000 mls @ 50 mls/hr IV .Q20H [facility] Stop: 08/15/24 17:59 Last Infusion: 08/15/24 02:49 Dose: 0 mls/hr Norepinephrine/Dextrose (Levophed In D5w 8mg/250ml) 8 mg in 250 mls @ 10.631 mls/hr IV .[id number] PRN; Protocol PRN Reason: PER PROTOCOL Stop: 09/13/24 18:55 Influenza Virus Vaccine Quadrival (Influenza Virus Quadrivalent 0.5 Ml Syringe) 0.5 ml IMi .ONCE ONE Stop: 08/15/24 05:36 Last Admin: 08/15/24 05:43 Dose: Not Given Insulin Human Lispro (Insulin Lispro (Admelog) 1 Unit/0.01 Ml Unit) 0 unit SC ACHS [facility]; Protocol Stop: 09/13/24 20:59 Last Admin: 08/14/24 22:16 Dose: Not Given Insulin Human Lispro (Insulin Lispro (Admelog) 1 Unit/0.01 Ml Unit) 0 unit SC Q6HR [facility]; Protocol Stop: 09/13/24 22:14 Midazolam HCl (Midazolam Inj 1 Mg/Ml Vial 2 Ml) 4 mg IV X1 ONE Stop: 08/15/24 01:18 Last Admin: 08/15/24 01:19 Dose: 4 mg Pantoprazole Sodium (Pantoprazole Inj 40 Mg Vial) 40 mg IVP X1 ONE Stop: 08/14/24 16:46 Last Admin: 08/14/24 17:40 Dose: 40 mg Rivaroxaban (Rivaroxaban 10 Mg Tablet) 20 mg PO WSUPPER [facility] Stop: 09/14/24 17:29 Rocuronium Noxon (Rocuronium Inj 10 Mg/Ml Vial 10 Ml) 50 mg IVP X1 ONE Stop: 08/15/24 01:23 Last Admin: 08/15/24 01:24 Dose: 50 mg Sodium Bicarbonate (Sodium Bicarb Inj 8.4% Syr 50 Ml Syringe) 50 ml IV X1 ONE Stop: 08/15/24 03:04 Last Admin: 08/15/24 03:07 Dose: 50 ml Sodium Bicarbonate (Sodium Bicarb Inj 8.4% Syr 50 Ml Syringe) 100 ml IV X1 ONE Stop: 08/15/24 11:53 Vecuronium Noxon (Vecuronium Inj 10 Mg Vial) 20 mg IV X1 ONE Stop: 08/14/24 13:07 Last Admin: 08/14/24 13:11 Dose: 20 mg Assessment & Plan Plan The patient is a 59-year-old female with a previous medical history of CHF, A- fib, hypertension, COPD, CVA with residual left-sided hemiparesis who was brought in by ambulance from detention due to altered mental status. She was intubated in the ED and was admitted to the ICU. Nephrology was consulted due to QASIM. #QASIM vs CKD #Anion gap metabolic acidosis Patient does not have any recent labs to assess her baseline of renal functions. Creatinine in 2020 is normal. On admission BUN 34, creatinine 1.4. 08/15/2024 labs showed sodium 131, potassium 4.7, bicarb 10.3, BUN 34, creatinine 1.7 EGFR 35, lactate continue to uptrend throughout the night, last lactate level at 7:45 AM show 12.6. Phosphorus level 6.5, magnesium 2.9, AST 126, ALT 48, alkaline phosphatase 225, albumin 2.4. Patient has received a dose of Lasix 40 mg IV, was not able to achieve diuresis. Patient has severe metabolic acidosis most likely due to lactate acidosis in the setting of severe sepsis. ABG 08/15 at 11:08 AM showed pH of 6.84, CO2 47, pO2 138, bicarb 8. Plan: ? Will continue to monitor patient ? Will proceed with dialysis after central line placement ? Avoid nephrotoxic agents ? Renally dose medication ? Monitor daily CMP #Acute encephalopathy #CVA history #Shock, most likely septic #A-fib #AHRF #Pneumonia #Abdominal mass #Ischemic bowel suspected #Melena #Hyperglycemia #Thrombocytosis #Pneumonia - management as per primary team Plan of care discussed with attending Dr. Gary Mcfadden MD, PGY 1. Attending Provider Attestation/Addendum Patient seen and examined with resident physician Dr. Ayon. Note reviewed, agree with findings and recommendations. Patient came back from surgery. pH still significantly low at 6.8. Had ischemic bowel and most of the colon was removed by Dr. Riley. Has colostomy. Decided to proceed with dialysis. Vas-Cath placed by primary team. Patient currently seen on dialysis. Tolerating dialysis without any problems. CRRT not available in this hospital. Decided to proceed with a conventional dialysis to correct intractable metabolic acidosis and electrolytes. Hemodialysis for 2 hours, qd 200,2K, bicarbonate 35, ultrafiltration 0 L, Epogen 6000, no heparin ordered. Plan of care discussed with the dialysis nurse. Please see dialysis flowsheet for further details. Prognosis still remains extremely guarded. Family aware. Thank you Dr. Badillo for allowing me to participate in the care of Ms. Rossi
--- NOTE | 2024-08-15 12:06 | PD.SUROPNT ---
Date of Procedure 08/15/24 Pre Op Diagnosis Ischemia of the large bowel Post Op Diagnosis Same with extensive ischemia of the anterior left colon including the splenic flexure and portion of the transverse colon Possible mass in the rectum rule out cancer Procedure Explored laparotomy and resection of the anterior left colon including sigmoid colon descending colon splenic flexure and portion of the transverse colon and transverse colostomy. Closure of the rectal stump Findings Patient is found to have ischemia of the anterior left colon starting from distal transverse colon all the way down to the rectosigmoid. It was also very dilated but there was no rosa maria gangrene. The small bowel appeared normal. Procedure Description After the patient was brought to the operating room and due to clearances given. Timeout was performed. Abdomen was prepped with ChloraPrep solution and draped in a sterile manner. Then I entered the abdomen through the midline incision with a 10 blade knife. Immediately ischemic bowel came into view but there was no gangrene. This ischemia has been going on for quite some time because patient had a large hard stools all over the left colon. My exploration also revealed a palpable mass in the rectal tail region which could not be reached from above this appeared more like cancer rather than hard stool. I decided to remove the left colon. I mobilized the rectosigmoid junction and stapled it using a TA 60 with green jack. Then the left colon was removed by clamping the mesentery but there was hardly any bleeding. The dissection was extended all the way to the splenic flexure which was mobilized. I got into the lesser sac and mobilized the transverse colon to drop the splenic flexure. Then the proximal transverse colon was divided using a BRUNO. Therefore a portion of the transverse colon was included in the specimen which consisted of ischemia of the splenic flexure descending colon and sigmoid colon. Wound was thoroughly irrigated because some contamination occurred during the dissection. Then a transverse colostomy was made on the right side of the abdomen by cutting a small piece of the skin and bringing colon. A cruciate incision was made over the anterior sheath onto Vicryl was used to attach the colon to this area. Then after checking for the counts the wound was closed with #1's strata fix sutures 2 of them. Because of the contamination abdomen was left open and wound VAC was applied and patient was returned to ICU. She remained stable during surgery even though her pH dropped to 7.68. The colostomy was matured using a 3-0 chromic after opening the transverse colon Anesthesia GETA Pathology / specimen Other IVF Infused 1,500 Estimated Blood Loss 30 Condition Stable Disposition ICU Surgeon Daquan Palacios MD Surgical Staff Operation Date: 08/15/24 08:30 Case Staff Anesthesiologist: Tray Larsen RNassistant food service manager: Lacey Jaffe
--- NOTE | 2024-08-15 12:33 | PC.NURSE ---
PATIENT RETURNED FROM THE OR, VITALS WITHIN NORMAL LIMITS REPORT RECEIVED FROM DR JACOBSON AND THUY RN PATIENT HAS WOUND VAC IN PLACE.
[2024-08-15] MEDS: Sodium Bicarb Inj 8.4% SYR 50 ML SYRINGE 100 ML IV (12:45)
[2024-08-15] MEDS: MIDAZOLAM/NS 100 MG IVPB 100 MG/100 ML BAG IV (12:50)
[2024-08-15] MEDS: PANTOPRAZOLE INJ 40 MG VIAL IV (12:50)
[2024-08-15] MEDS: Norepinephrine/NS 16mg/250ml 16 MG/250 ML BAG 55.282 MG IV (13:01)
--- NOTE | 2024-08-15 13:03 | ESPR_ITS ---
Documentation for date of: 08/15/24 ANESTHESIA NOTE: Patient had minimal tolerated GETA for ex lap, partial colon resection, and colostomy for suspected acute abdomen. Pre-op, I was first called by the surgeon early this morning for evaluation for possible abdominal surgery and I promptly arrived. Patient was intubated, on vent, on sedation in ICU 258 with her , son and RN at bedside. She has h/o COPD, on home O2, HTN, A fib, CVA (with L sided weakness), and non- ambulatory. The reported patient having lower abdominal pain for 1 week and he also endorsed patient having chest discomfort recently. This admission, she is found to have hypoxic respiratory failure and intubated, with b/l lung opacities, requiring 100% FiO2 and PEEP of 12 on my visit, and RN reported patient desats to 80s% easily. She also has worsening BUN/Cr and oliguria with only 100 cc UOP in last 12 hr per the night RN. Labs showing acid osis (pH around 7) and markedly elevated lactic acid and negative base excess. She was unresponsive to voice and pain and appeared to have anasarca. She was on drips: Fent/Nimbex/Levo 1.2/Vaso 0.03/Bicarb 50. Her critical condition was discussed with her and her son at bedside, the surgeon also discussed this with them, and they wanted to proceed despite risks. She was taken to OR with the OR team, with RT with portable vent and PEEP maintained. Ex lap revealed bowel ischemia/necrosis and partial colon resection done lasting 2.5 hrs of surgery (see op note for details). I continued her drips except Fent and down-titrated Levo (0.5 at the end) and Vaso (0.01 at the end) during the case and increased Bicarb to 75 after intra-op ABG showed worsening pH and bicarb. I gave her 25 cc Bicarb and 1 gm CaCl bolus intra-op. Her OG tube putout 600 cc of dark liquid in the beginning. UOP 25 cc dark. Her vitals were maintained intra-op, SBP 100-130s A line throughout, HR 80-90s sinus throughout. Her O2 sat was 93% on 100% FiO2 PEEP 12 pre--op in ICU and in the beginning intra-op, her O2 sat was 99% measured at R hand. However, during the case, both her hands were cold and Pox wasn't reading and R ear probe intermittently measured O2 sat at 94%. I tried obtaining Pox reading at multiple fingers (even did digital blocks with 1 cc of 2% Lidocaine plain each site) and tried forehead Pox but unsuccessful. ABG showed O2 sat of 97%. She received 500 cc of 5% Albumin and 900 cc of NS intra-op. No IV anti- microbials given intra-op. At the end, she was transferred back to ICU in critical condition and care transferred back to ICU team with report given. Tray Larsen MD Anesthesia Progress Note Progress Note Most recent Vital Signs: Last Vital Signs Temp 102.2 F H 08/15/24 08:00 Pulse 89 08/15/24 13:01 Resp 20 08/14/24 20:45 BP 107/32 L 08/15/24 13:01 Pulse Ox 85 L 08/15/24 08:46 O2 Del Method Mechanical Ventilation 08/15/24 08:00 FiO2 100 08/15/24 08:00
[2024-08-15] MEDS: Sodium Bicarb 8.4% 50ml Vial* 88.23 MEQ in DEXTROSE 5%-WATER 500 ML 125 MEQ IV ×2 (13:18→18:39)
[2024-08-15 14:03] LABS: Base Excess, Venous -19 (-3-3); O2 Saturation, Venous 99 % (96-97); PCO2, Venous 37 mmHg (36-56); PO2, Venous 159 mmHg (15-58); pH, Venous 7.06 (7.33-7.66)
[2024-08-15] MEDS: ALBUTEROL/IPRATROPIUM (Duoneb) RT SOL 3 ML NEBU INH ×3 (14:26→23:46)
[2024-08-15 14:38] LABS: Anion Gap 24 (7-16); BUN/Creatinine Ratio 23 Ratio (12-20); Blood Urea Nitrogen 44 mg/dL (9-23); Calcium 8.5 mg/dL (8.3-10.6); Chloride 104 mMol/L (98-107); Creatinine (Component) 1.9 mg/dL (0.6-1.3); Estimated Creatinine Clearance 43.2 mL/min (>60); Glucose 86 mg/dL (74-106); Magnesium 2.8 mg/dL (1.6-2.6); Osmolality,Calculated 287 (275-295); Phosphorous 8.4 mg/dL (2.4-5.1); Potassium 4.3 mMol/L (3.4-5.1); Sodium 139 mMol/L (136-145); eGFR 30 See Note
[2024-08-15 14:52] LABS: Carbon Dioxide 10.9 mMol/L (20.0-31.0)
[2024-08-15] MEDS: AZITHROMYCIN INJ 500 MG in SODIUM CHLORIDE 0.9% 250 ML 250 ML 250 MG IV (14:55)
--- NOTE | 2024-08-15 15:17 | PD.IMCONS ---
HPI Data of Consult Requesting Physician: Haris Clements MD Primary Care Provider: Physician No Primary/Family Consult Narrative cc:: cc: Haris Clements MD Meds Home Medications and Allergies Home Medications ?Medication ?Instructions ?Recorded ?Confirmed ?Type alprazolam 0.5 mg tablet 0.5 mg PO BID 08/20/18 07/07/21 History hydroxyzine HCl 25 mg tablet 25 mg PO QHSPRN PRN Insomnia 08/20/18 07/07/21 History levothyroxine 100 mcg tablet 100 mcg PO QDAY 08/20/18 07/07/21 History buspirone 10 mg tablet 10 mg PO BID 07/07/21 07/07/21 History diltiazem HCl 30 mg tablet 30 mg PO TID 07/07/21 07/07/21 History fluoxetine 20 mg capsule 20 mg PO QDAY 07/07/21 07/07/21 History metoprolol succinate 50 mg 50 mg PO QDAY 07/07/21 07/07/21 History tablet,extended release 24 hr rivaroxaban 20 mg tablet (Xarelto) 20 mg PO QDAY 07/07/21 07/07/21 History Allergies Allergy/AdvReac Type Severity Reaction Status Date / Time Penicillins Allergy Unknown Verified 07/06/21 14:48 hydrocodone AdvReac Mild N/V Verified 07/06/21 14:48 Exam Vital Signs Temp Pulse Resp BP Pulse Ox O2 Del Method FiO2 99.8 F 88 24 H 142/44 H 94 L Mechanical Ventilation 100 08/15/24 13:00 08/15/24 15:00 08/15/24 14:28 08/15/24 14:24 08/15/24 14:45 08/15/24 15:00 08/15/24 15:00 Results Labs 08/16/24 07:50 08/16/24 06:40 Labs: Short CBC 08/14/24 08/15/24 08/15/24 Range/Units 14:20 00:05 05:19 WBC 11.0 25.5 H D 37.0 H* D (3.6-11.0) Thou/mm3 Hgb 12.7 11.2 L 12.1 (12.0-16.0) g/dL Hct 43.6 39.2 43.2 (36.0-46.0) % Plt Count 971 H 857 H D 1037 H* D (140-440) Thou/mm3 BMP 08/14/24 08/15/24 08/15/24 14:20 00:05 05:19 Sodium 132 L 133 L 131 L Potassium 4.0 3.8 4.7 D Chloride 100 101 100 Carbon Dioxide 19.1 L 18.1 L 10.3 L* BUN 34 H 39 H 34 H Creatinine 1.4 H 1.4 H 1.7 H Glucose 139 H 163 H 153 H Calcium 8.3 8.1 L 8.5 08/15/24 13:50 Sodium 139 Potassium 4.3 Chloride 104 Carbon Dioxide 10.9 L* BUN 44 H Creatinine 1.9 H Glucose 86 D Calcium 8.5 Cardiac Enzymes 08/14/24 08/14/24 08/15/24 Range/Units 14:20 21:43 00:05 Total Creatine Kinase 27 L (34-171) U/L Troponin I < 0.020 < 0.020 (0.0-0.045) ng/mL Liver Function 08/14/24 08/15/24 08/15/24 Range/Units 14:20 00:05 05:19 Total Bilirubin 0.6 0.7 0.8 (0.3-1.2) mg/dL AST 74 H 50 H 126 H (0-34) U/L ALT 24 25 48 (10-49) U/L Alkaline Phosphatase 271 H 204 H D 225 H D (46-116) U/L Albumin 2.4 L 2.1 L 2.4 L (3.5-5.0) gm/dL ABG Interpretation ABG results: 08/14/24 08/14/24 08/14/24 13:56 18:03 21:30 ABG pH 7.12 L* 7.15 L* 7.20 L ABG pCO2 57 H 58 H 48 D ABG pO2 80 L 69 L 64 L ABG HCO3 19 L 20 19 L ABG O2 Saturation 98 90 L 89 L ABG Base Excess -11 L -9 L -9 L VBG pH VBG pCO2 VBG pO2 VBG Base Excess 08/15/24 08/15/24 08/15/24 01:30 03:30 05:03 ABG pH 7.17 L* 7.20 L 7.17 L* ABG pCO2 42 46 43 ABG pO2 57 L* 75 L 103 D ABG HCO3 15 L 18 L 16 L ABG O2 Saturation 85 L 93 97 ABG Base Excess -13 L -10 L -13 L VBG pH VBG pCO2 VBG pO2 VBG Base Excess 08/15/24 08/15/24 11:08 13:50 ABG pH 6.84 L* D ABG pCO2 47 ABG pO2 138 H D ABG HCO3 8 L* ABG O2 Saturation 97 ABG Base Excess -25 L VBG pH 7.06 L VBG pCO2 37 VBG pO2 159 H VBG Base Excess -19 L
--- NOTE | 2024-08-15 15:57 | XR_ITS ---
Examination: AP chest single view Technique one AP portable sitting chest single view Exam date and time: 03/15 2024 1615 hrs. Comparison August 14, 2024 Indications: Status post temporary dialysis catheter insertion, pneumonia hypoxic respiratory failure Findings: Bilateral lung opacity consistent with pneumonia Mild enlargement left ventricle Endotracheal tube tip 5.9 cm above krish Right internal jugular central line tip SVC satisfactory position left Left internal jugular temporary dialysis catheter tip SVC satisfactory position No pneumothorax The orogastric tube is in the stomach, the tip is below the level of the film Impression: Interval left internal jugular temporary dialysis catheter tip in satisfactory position SVC, no pneumothorax
[2024-08-15] MEDS: Norepinephrine/NS 16mg/250ml 16 MG/250 ML BAG 74.417 MG IV (16:06)
--- NOTE | 2024-08-15 16:23 | PD.RESPROC ---
Procedures Procedure Date / Time 08/15/24 6271 Procedure Narrative Procedure Narrative: Attending Attestation: I was present for entire procedure. Patient tolerated procedure well with no immediate complications. Follow-up chest x-ray shows adequate placement of the distal end of the catheter with no postprocedural pneumothorax. Catheter ready for use with hemodialysis. Central Line Placement Left IJ: Indication(s): other (Tri-flow for dialysis) Informed consent obtained: obtained from surrogate decision maker Time out done, and the following verified: correct patient, side and site, procedure, patient position and implants and/or equipment Patient placed on monitor/pulse ox: Yes Hand Hygiene: alcohol-based hand rub Max Sterile Barrier Techniques used: cap, mask, sterile gown, sterile gloves, sterile full body drape and other Central line prep: Chlorhexidine scrub and sterile drapes applied Local anesthesia used: lidocaine 1% Amount of anesthesia used (mL): 5 Ultrasound used for placement: Yes Sterile Technique if Ultrasound used, including sterile gel: yes Central line lumen inserted: triple (Tri-flow) Post procedure: sutured in place, good blood return, all ports aspirated, flushed, capped and sterile dressing applied Post procedure x-ray: tip of catheter in good position and no pneumothorax seen Patient tolerated procedure: well and no complications EBL(ml): 5 Complications: none Procedure comment: Performed under supervision of attending Dr. Badillo. Nakul Samuel MD PGY-1
[2024-08-15 17:00] LABS: Reflex Lactate? Y
--- NOTE | 2024-08-15 17:56 | PC.NURSE ---
On dialysis. MAP trending down 56. BP 112/38, HR 92. Levo was increased by Alejandra HERRERA. Will monitor
--- NOTE | 2024-08-15 18:43 | PC.NURSE ---
Pt has 1 hr left on HD. MAp still low 59, BP 98/40, HR 97. Levo was increased to 1.1 mcg/kg/min by RN. Will monitor
--- NOTE | 2024-08-15 18:46 | ESPR_ITS ---
Documentation for date of: 08/15/24 Subjective Subjective Interval history: 59 y/o F with PMHx significant for CHF, Afib, HTN, COPD, CVA with residual left sided paralysis, brought in by EMS from [facility] due to AMS. EMS noted patient was hypoxic saturating 71% on room air. On arrival patient was determined to be A&Ox4 and GCS 15 in the ED. Patient intubated due to severe hypoxia. Nursing facility called to inform ED that patient's had visited and has been known to give patient pills. Tox screen positive for benzos. While placing Phan cath, nurse noted patient had black stools. Stool guac positive. Patient received 1L bolus NS, ceftriaxone, and protonix in the ED. Head CT unremarkable. CXR showed bilateral central opacities indicating pneumonia and congestion. Patient admitted to ICU due to intubation. 08/15/2024: Patient seen and examined at bedside. CT showed colitis/proctitis and signs of bowel ischemia. Patient received emergent exploratory laparotomy with resection of transverse, sigmoid, and descending colon. Fascia closed, wound left open with wound vac. Spoke to patient's , who conformed patient had been experiencing bowel pain for at least 1 week. Patient acidemia worsening as lactic acid trends up. Triflow cath placed in L IJ without incident. Dialysis to be attempted tonight. Close monitoring of patients electrolytes in setting of bowel ischemia s/p resection. Holding anticoag pending surgery recommendation. Exam Vital Signs Temp Pulse Resp BP Pulse Ox O2 Del Method FiO2 97.7 F 97 24 H 98/40 L 98 Mechanical Ventilation 100 08/15/24 17:30 08/15/24 18:44 08/15/24 17:30 08/15/24 18:44 08/15/24 17:30 08/15/24 17:00 08/15/24 17:30 Narrative Exam PE: Gen: Well-developed and well-nourished. Obese. Intubated, sedated, paralyzed. HEENT: NCAT, PERRLA, EOMI, MMM, anicteric conjunctivae. Right IJ central line, Left IJ triflow CVS: normal S1 and S2. RRR. No M/R/G. Resp: Poor lung sounds due to body habitus. Coarse lung sounds throughout. Left basilar crackles. Abd: Open laparotomy wound with wound vac. Illeostomy. MSK: 2+ pitting edema in bilateral upper and lower extremities. Extremities cool to touch. Neuro: GCS 3. Objective Labs 08/16/24 07:50 08/16/24 06:40 Labs: Laboratory Results - last 24 hr 08/14/24 08/14/24 08/14/24 18:26 21:30 21:43 WBC RBC Hgb Hct MCV MCH MCHC RDW Std Deviation Plt Count Neut % (Auto) Lymph % (Auto) [place] % (Auto) Eos % (Auto) Baso % (Auto) Neut # (Auto) Lymph # (Auto) [place] # (Auto) Eos # (Auto) Baso # (Auto) Immature Gran # (Auto) Absolute Nucleated RBC Immature Gran % Nucleated RBC % Smear Path Review PT INR APTT Puncture Site Right Radial ABG pH 7.20 L ABG pCO2 48 D ABG pO2 64 L ABG HCO3 19 L ABG O2 Saturation 89 L ABG Base Excess -9 L VBG pH VBG pCO2 VBG pO2 VBG O2 Sat (Gayle) VBG Base Excess FiO2 100 Sodium Potassium Chloride Carbon Dioxide Anion Gap BUN Creatinine Estim Creat Clear Calc eGFR BUN/Creatinine Ratio Glucose Estimated Ave Glu mg/dL Hemoglobin A1c Calculated Osmolality Lactic Acid 5.2 H* Calcium Corrected Calcium Phosphorus Magnesium Total Bilirubin AST ALT Alkaline Phosphatase Ammonia 102 H* Total Creatine Kinase Troponin I < 0.020 Total Protein Albumin Globulin Albumin/Globulin Ratio TSH 1.68 Blood Type Antibody Screen Crossmatch Blood Bank Wristband ID Blood Bank Comment 08/15/24 08/15/24 08/15/24 00:05 01:30 02:27 WBC 25.5 H D RBC 4.37 Hgb 11.2 L Hct 39.2 MCV 90 MCH 25.6 MCHC 28.6 L RDW Std Deviation 66.9 H Plt Count 857 H D Neut % (Auto) 86 H Lymph % (Auto) 9 L [place] % (Auto) 5 Eos % (Auto) 0 Baso % (Auto) 0 Neut # (Auto) 21.8 H Lymph # (Auto) 2.2 [place] # (Auto) 1.2 H Eos # (Auto) 0.0 Baso # (Auto) 0.1 Immature Gran # (Auto) 0.22 H Absolute Nucleated RBC 0.00 Immature Gran % 1 H Nucleated RBC % 0 Smear Path Review PT INR APTT Puncture Site Right Radial ABG pH 7.17 L* ABG pCO2 42 ABG pO2 57 L* ABG HCO3 15 L ABG O2 Saturation 85 L ABG Base Excess -13 L VBG pH VBG pCO2 VBG pO2 VBG O2 Sat (Gayle) VBG Base Excess FiO2 21 Sodium 133 L Potassium 3.8 Chloride 101 Carbon Dioxide 18.1 L Anion Gap 14 BUN 39 H Creatinine 1.4 H Estim Creat Clear Calc 55.7 L eGFR 44 L BUN/Creatinine Ratio 28 H Glucose [address] Glu mg/dL Hemoglobin A1c Calculated Osmolality 279 Lactic Acid 6.4 H* 8.4 H* Calcium 8.1 L Corrected Calcium 9.6 Phosphorus 5.8 H Magnesium 2.6 Total Bilirubin 0.7 AST 50 H ALT 25 Alkaline Phosphatase 204 H D Ammonia Total Creatine Kinase 27 L Troponin I Total Protein 5.0 L Albumin 2.1 L Globulin 2.9 Albumin/Globulin Ratio 0.7 L TSH Blood Type A Positive Antibody Screen NEGATIVE Crossmatch See Detail Blood Bank Wristband ID Yes Blood Bank Comment PLATP Ready 08/15/24 08/15/24 08/15/24 03:30 05:03 05:19 WBC 37.0 H* D RBC 4.76 Hgb 12.1 Hct 43.2 MCV 91 MCH 25.4 MCHC 28.0 L RDW Std Deviation 67.0 H Plt Count 1037 H* D Neut % (Auto) 87 H Lymph % (Auto) 5 L [place] % (Auto) 5 Eos % (Auto) 1 Baso % (Auto) 0 Neut # (Auto) 32.4 H Lymph # (Auto) 1.7 [place] # (Auto) 1.7 H Eos # (Auto) 0.2 Baso # (Auto) 0.2 Immature Gran # (Auto) 0.87 H Absolute Nucleated RBC 0.03 H Immature Gran % 2 H Nucleated RBC % 0 Smear Path Review Sent to Pathologist PT 15.3 H INR 1.4 H APTT 28.5 Puncture Site Right Brachial Right Brachial ABG pH 7.20 L 7.17 L* ABG pCO2 46 43 ABG pO2 75 L 103 D ABG HCO3 18 L 16 L ABG O2 Saturation 93 97 ABG Base Excess -10 L -13 L VBG pH VBG pCO2 VBG pO2 VBG O2 Sat (Gayle) VBG Base Excess FiO2 21 100 Sodium 131 L Potassium 4.7 D Chloride 100 Carbon Dioxide 10.3 L* Anion Gap 21 H BUN 34 H Creatinine 1.7 H Estim Creat Clear Calc 48.3 L eGFR 35 L BUN/Creatinine Ratio [address] Glu mg/dL 85 Hemoglobin A1c 4.6 L Calculated Osmolality 273 L Lactic Acid 7.6 H* Calcium 8.5 Corrected Calcium 9.8 Phosphorus 6.5 H Magnesium 2.9 H Total Bilirubin 0.8 AST 126 H ALT 48 Alkaline Phosphatase 225 H D Ammonia Total Creatine Kinase Troponin I Total Protein 5.9 Albumin 2.4 L Globulin 3.5 Albumin/Globulin Ratio 0.7 L [facility] Blood Type Antibody Screen Crosswatch Blood Bank [facility] Blood Bank Comment 08/15/24 08/15/24 08/15/24 07:45 11:08 13:50 WBC RBC Hgb Hct MCV MCH MCHC RDW Std Deviation Plt Count Neut % (Auto) Lymph % (Auto) [place] % (Auto) Eos % (Auto) Baso % (Auto) Neut # (Auto) Lymph # (Auto) [place] # (Auto) Eos # (Auto) Baso # (Auto) Immature Gran # (Auto) Absolute Nucleated RBC Immature Gran % Nucleated RBC % Smear Path Review PT INR APTT Puncture Site Right Femoral ABG pH 6.84 L* D ABG pCO2 47 ABG pO2 138 H D ABG HCO3 8 L* ABG O2 Saturation 97 ABG Base Excess -25 L VBG pH 7.06 L VBG pCO2 37 VBG pO2 159 H VBG O2 Sat (Gayle) 99 H VBG Base Excess -19 L FiO2 100 Sodium 139 Potassium 4.3 Chloride 104 Carbon Dioxide 10.9 L* Anion Gap 24 H BUN 44 H Creatinine 1.9 H Estim Creat Clear Calc 43.2 L eGFR 30 L BUN/Creatinine Ratio 23 H Glucose [address] Glu mg/dL Hemoglobin A1c Calculated Osmolality 287 Lactic Acid 12.6 H* 17.0 H* Calcium 8.5 Corrected Calcium Phosphorus 8.4 H Magnesium 2.8 H Total Bilirubin AST ALT Alkaline Phosphatase Ammonia Total Creatine Kinase Troponin I Total Protein Albumin Globulin Albumin/Globulin Ratio [facility] Blood Type Antibody Screen Crosswatch Blood Bank [facility] Blood Bank Comment 08/15/24 17:24 WBC RBC Hgb Hct MCV MCH MCHC RDW Std Deviation Plt Count Neut % (Auto) Lymph % (Auto) [place] % (Auto) Eos % (Auto) Baso % (Auto) Neut # (Auto) Lymph # (Auto) [place] # (Auto) Eos # (Auto) Baso # (Auto) Immature Gran # (Auto) Absolute Nucleated RBC Immature Gran % Nucleated RBC % Smear Path Review PT INR APTT Puncture Site ABG pH ABG pCO2 ABG pO2 ABG HCO3 ABG O2 Saturation ABG Base Excess VBG pH VBG pCO2 VBG pO2 VBG O2 Sat (Gayle) VBG Base Excess FiO2 Sodium Potassium Chloride Carbon Dioxide Anion Gap BUN Creatinine Estim Creat Clear Calc eGFR BUN/Creatinine Ratio Glucose Estimated Ave Glu mg/dL Hemoglobin A1c Calculated Osmolality Lactic Acid 21.0 H* Calcium Corrected Calcium Phosphorus Magnesium Total Bilirubin AST ALT Alkaline Phosphatase Ammonia Total Creatine Kinase Troponin I Total Protein Albumin Globulin Albumin/Globulin Ratio TSH Blood Type Antibody Screen Crossmatch Blood Bank Wristband ID Blood Bank Comment ABG Interpretation ABG results: 08/14/24 08/14/24 08/14/24 13:56 18:03 21:30 ABG pH 7.12 L* 7.15 L* 7.20 L ABG pCO2 57 H 58 H 48 D ABG pO2 80 L 69 L 64 L ABG HCO3 19 L 20 19 L ABG O2 Saturation 98 90 L 89 L ABG Base Excess -11 L -9 L -9 L VBG pH VBG pCO2 VBG pO2 VBG Base Excess 08/15/24 08/15/24 08/15/24 01:30 03:30 05:03 ABG pH 7.17 L* 7.20 L 7.17 L* ABG pCO2 42 46 43 ABG pO2 57 L* 75 L 103 D ABG HCO3 15 L 18 L 16 L ABG O2 Saturation 85 L 93 97 ABG Base Excess -13 L -10 L -13 L VBG pH VBG pCO2 VBG pO2 VBG Base Excess 08/15/24 08/15/24 11:08 13:50 ABG pH 6.84 L* D ABG pCO2 47 ABG pO2 138 H D ABG HCO3 8 L* ABG O2 Saturation 97 ABG Base Excess -25 L VBG pH 7.06 L VBG pCO2 37 VBG pO2 159 H VBG Base Excess -19 L Quality Measures Quality Measures none Assessment & Plan Assessment Current Active Medications: Generic Name Dose Route Start Last Admin Trade Name Freq PRN Reason Stop Dose Admin Acetaminophen 650 mg 08/14/24 17:21 Acetaminophen 325 Mg Tablet PO 09/13/24 17:20 Q4HR PRN PAIN SCALE 1-3 (mild Acetaminophen 650 mg 08/14/24 17:21 Acetaminophen Supp 650 Mg Supp OH 09/13/24 17:20 Q4HR PRN PAIN SCALE 1-3 (mild Al Hydrox/Mg Hydrox/Simethicone 30 ml 08/14/24 17:21 Mg Hyd/Al Hyd/Nolan (Maalox Reg) Susp 30 Ml Udc PO 09/13/24 17:20 Q4HR PRN Heartburn or Upset Stomach Albuterol/Ipratropium 3 ml 08/15/24 11:00 08/15/24 14:26 Albuterol/Ipratropium (Duoneb) Rt Velma 3 Ml Nebu INH 09/14/24 10:59 3 ml Q4HRRT CONSTANCE Administration Dextrose 25 ml 08/14/24 17:45 Dextrose 50%-Water Inj 50 Ml Syringe IV 09/13/24 17:44 Q15MIN PRN BG 50-70 responsive npo pt Dextrose 50 ml 08/14/24 17:45 Dextrose 50%-Water Inj 50 Ml Syringe IV 09/13/24 17:44 Q15MIN PRN BG <50 OR BG <70 & pt unresponsive Heparin Sodium (Porcine) 2,500 unit 08/15/24 18:28 Heparin Sod Inj 1000 Unit/Ml Vial 10 Ml INDWELLCAT 08/21/24 18:27 X1 PRN DIALYSIS Hydrocortisone Sodium Succinate 50 mg 08/15/24 06:00 08/15/24 17:39 Hydrocortisone Sod Succ Inj 100 Mg Vial IV 09/14/24 05:59 50 mg Q6HR CONSTANCE Administration Azithromycin 500 mg/ Sodium 250 mls @ 250 mls/hr 08/14/24 17:34 08/15/24 16:04 Chloride IV 08/21/24 17:33 Infused QDAY@1400 CONSTANCE Infusion Metronidazole 500 mg in 100 mls @ 200 mls/hr 08/14/24 21:36 08/15/24 16:04 Flagyl 500 Mg Iv IV 08/21/24 21:35 Infused Q8HR CONSTANCE Infusion Ciprofloxacin/Dextrose 400 mg in 200 mls @ 200 mls/hr 08/14/24 22:00 08/15/24 16:04 Cipro Ivpb IV 08/21/24 21:59 Infused Q8HR CONSTANCE Infusion Cisatracurium Besylate 200 mg/ 520 mls @ 17.69 mls/hr 08/15/24 01:26 08/15/24 18:00 Sodium Chloride IV 09/14/24 01:25 1.25 mcg/kg/min .Q24H PRN 22.113 mls/hr Per Protocol Titration Protocol 1 MCG/KG/MIN Propofol 1,000 mg in 100 mls @ 3.402 mls/hr 08/15/24 01:46 08/15/24 18:00 Diprivan Ivpb IV 09/13/24 17:36 15 mcg/kg/min .Q24H PRN 10.206 mls/hr PER PROTOCOL Titration Protocol 5 MCG/KG/MIN Fentanyl Citrate 2,500 mcg in 250 mls @ 2.5 mls/hr 08/15/24 01:44 08/15/24 18:00 Sublimaze Inj 2,500 Mcg/250 Ml Bag IV 08/19/24 17:20 100 mcg/hr .Q24H PRN 10 mls/hr PER PROTOCOL Titration Protocol 25 MCG/HR Vasopressin/Sodium Chloride 20 unit in 100 mls @ 9 mls/hr 08/15/24 02:08 08/15/24 12:41 Vasostrict/Ns Ivpb IV 09/14/24 02:07 0.03 unit/min .Q11H7M PRN 9 mls/hr PER PROTOCOL Administration Protocol 0.03 UNIT/MIN Norepinephrine Bitartrate 16 mg in 250 mls @ 5.316 mls/hr 08/15/24 03:51 08/15/24 18:40 Levophed In Ns 16mg/250ml IV 09/14/24 03:50 1.1 mcg/kg/min .Q24H PRN 116.942 mls/hr PER PROTOCOL Titration Protocol 0.05 MCG/KG/MIN Midazolam HCl 100 mg in 100 mls @ 2 mls/hr 08/15/24 12:47 08/15/24 18:00 Versed Pf Inj In Ns Premix IV 08/20/24 12:46 2 mg/hr .Q24H PRN 2 mls/hr PER PROTOCOL Titration Protocol 2 MG/HR Sodium Bicarbonate 88.23 meq/ 588.23 mls @ 125 mls/hr 08/15/24 12:59 08/15/24 18:39 Dextrose IV 09/14/24 12:58 125 mls/hr .Q4H43M CONSTANCE Administration Albumin Human 25 gm in 100 mls @ 100 mls/min 08/15/24 17:29 Albuminar-25 Ivpb IV PRN PRN DIALYSIS Insulin Human Lispro 0 unit 08/15/24 00:00 08/15/24 17:23 Insulin Lispro (Admelog) 1 Unit/0.01 Ml Unit SC 09/14/24 00:00 Not Given Q6HR CONSTANCE Protocol Magnesium Hydroxide 30 ml 08/14/24 17:21 Milk Of Magnesia Susp 30 Ml Udc PO 09/13/24 17:20 QDAY PRN CONSTIPATION Nitroglycerin 0.4 mg 08/14/24 17:21 Nitroglycerin 0.4 Mg Subl Btl #25 SL Q5MIN PRN CHEST PAIN Ondansetron HCl 4 mg 08/14/24 17:21 Ondansetron Inj 2 Mg/Ml Inj 2 Ml IV 09/13/24 17:20 Q8HR PRN NAUSEA OR VOMITING Pantoprazole Sodium 40 mg 08/15/24 09:00 08/15/24 12:50 Pantoprazole Inj 40 Mg Vial IV 09/14/24 08:59 40 mg QDAY CONSTANCE Administration Plan 59 y/o F with PMHx significant for CHF, Afib, HTN, COPD, CVA with residual left sided paralysis, brought in by EMS from [facility] due to AMS, admitted to ICU for AHRF requiring intubation. Neuro: #Acute encephalopathy Patient was A&Ox4 and GCS 15 on arrival, GCS [address] unremarkable. -Treat underlying conditions -Patient sedated/paralyzed/intubated #CVA history Patient has history of CVA with left sided paralysis Cardio: #Septic and Cardiogenic shock Patient has poor perfusion, with lactate 5.0, cool pale extremities. Patient has history of CHF. Significant pitting edema, vascular congestion of CXR, crackles in LL lung, BNP 405. EKG showed ST depressions in leads V3?V6 and diffuse T wave inversions. Troponin remained negative on trend. WBCs uptrending. Patient had ischemic bowel, s/p resection. Severe lactic acidosis. -echo pending -Levophed titrate to protocol -Vasopressin -Dialysis #A-fib Patient has history of A-fib. Receives outpatient Xarelto. -Hold Xarelto pending surgery recs Pulm: #AHRF 2/2 fluid overload & #Pneumonia #ARDS Patient presented with hypoxia 71% on room air. Patient intubated for AHRF. Patient is fluid overloaded on exam, crackles on left lower lung chen, CXR showing vascular congestion and diffuse haziness indicating pneumonia. Patient leukocytosis 11.0 (borderline elevated), Pro-Andry 17.62. WBCs uptrended, 37k -Rocephin and azithromycin -Vent protective strategies -permissive hypercapnia -paralyzed and sedated to minimize work of breathing and maintain vent compliance -Judicious fluid use GI: #Ischemic bowel s/p resection Patient had firm mass on RLQ of abdomen. CT showed inflammation and signs of ischemia. Emergent laprotomy performed, resection of transverse, descending, and ischemic colon. Fascia closed, wound left open with wound vac. Ileostomy placed. Surgery following -Hold anticoags pending surgery recs -Hold all enteral meds pending surgery recs -BMP, Mg, Phos q8h with aggressive repletion. -Surgery following, greatly appreciated Renal: #QASIM on CKD Patient had elevated creatinine and BUN on admission. No recent labs, unable to determine if acute or chronic. Suspect prerenal due to renal congestion. CKD stage 3 confirmed by patient primary doctor. Kidney function worsening, UOP poor. L IJ triflow placed without incident, patient to receive dialysis tonight. -Monitor urine output -daily labs -avoid nephrotoxins -Dialysis -Judicious fluid administration #Anion gap metabolic acidosis Patient is acidotic with with ABG showing pH 7.15, pCO2 58, pO2 69. Serum bicarb 19.1. Anion gap corrected for low albumin 17. Lactic acid elevated 5.0 due to cardiogenic shock. Lactic acid uptrending, acidemia worsening. -Treat lactic acidosis -Dialysis -Adjust vent settings as needed to maintain permissive hypercapnia Endo: #Hyperglycemia Patient has no known history of diabetes. Patient blood sugar elevated around 200. Most recent A1c 6.2% on 03/10/18. A1c ordered, 4.6. -ISS -q6h glucose checks Heme: #Thrombocytosis Patient has thrombocyte count 971. No known history of myeloproliferative disorder. -Outpatient workup for proliferative mutations. ID: #Pneumonia Patient has diffuse haziness on chest x-ray indicating pneumonia. Patient is afebrile, leukocyte count 11.0 borderline elevated, Pro-Andry 17.62. -Azithromycin 500 mg IV daily (started 08/14) -Ceftriaxone 2 g IV daily (started 08/14) Skin/MSK: #LYNETTE ICU Health maintenance: Mechanical ventilation: Yes Sedation: None Diet: None DVT ppx: Held s/p surgery GI ppx: Protonix Phan: Yes IV lines: 3 Peripheral IVs Central line: L IJ Triflow, R IJ Arterial line: L femoral Code status:Full Code Plan of care discussed with attending Dr. Badillo. Nakul Samuel MD PGY-1 Attending Provider Attestation/Addendum Patient seen and examined with above resident, Nakul Samuel MD. I agree with the findings, assessment, and plan of care as documented except for any differences below. Patient overnight with increased requirements for pressors. Serial evaluation by surgery with subsequent decision made. Clarification with family given high risk for mortality in the operating room to pursue surgical intervention for suspected ischemic colitis. Patient also with significant intra-abdominal mass. Patient underwent exploratory laparotomy and return to ICU and continued critical condition with multiple pressor requirement though improved since prior. Lactic acidosis continues to be a significant issue with subsequent acute renal failure. Vas-Cath was placed along with arterial line for adequate titration of blood pressure both intraoperatively and and on follow-up in the ICU. Patient remains on appropriate mechanical ventilation settings for bulking protection and adequate support in the setting of her severe metabolic acidosis. Patient underwent hemodialysis and tolerated with vasopressor support. No plans for fluid removal at this time. Patient continues to have high risk for poor outcome due to multiorgan failure and in the setting of shock, renal failure, and at risk for worsening intra-abdominal infection despite appropriate antibiotics and successful expiration. Patient's family has been notified multiple times and was given adequate time to be at the bedside prior to intervention in OR and notified upon the patient return to ICU though I did not see them again thereafter. Patient family was updated by telephone by surgical staff and residents throughout the day. Total critical care time: I personally spent 100 minutes for review of physiologic parameters, directing plan of care throughout the day, coordination of care with other specialties, and counseling patient's family at bedside. This is exclusive of time spent teaching housestaff or performing any separate billable procedures. Patient continues to require critical care services for septic shock secondary to ischemic colitis, acute, acute renal failure, respiratory failure with increased risk for worsening morbidity and high risk for mortality.
[2024-08-15] MEDS: ALBUMIN HUMAN 25% IVPB 25 GM/100 ML BTL IV (19:01)
--- NOTE | 2024-08-15 19:05 | PC.NURSE ---
MAP remain low. Albumin 25 gms iv started for low bp/map support. Will monitor
--- NOTE | 2024-08-15 19:09 | PC.NURSE ---
BP/MAP improved 123/46 MAP 71. UFR increased to 620 ml/hr as tolerated. Will monitor
[2024-08-15] MEDS: HEPARIN SOD INJ 1000 UNIT/ML VIAL 10 ML 2500 UNIT INDWELLCAT (19:38)
--- NOTE | 2024-08-15 19:52 | PC.NURSE ---
1st dialysis completed for 2 hrs. No fluid removal per MD. Post tx BP 154/59, HR 94, Sating at 95% on ventilator. Temp 97.7. Report given to Laura HERRERA.
[2024-08-15 20:03] LABS: Base Excess -22 (-3-3); HCO3 9 mEq/L (20-26); Inspired Oxygen, FIO2 100 %; O2 Saturation 100 % (91-98); PCO2 41 mmHg (32.0-48.0); PO2 270 mmHg (83-108)
[2024-08-15 20:07] LABS: Allen Test Not Performed; Puncture Site Arterial Line
[2024-08-15 20:13] LABS: pH, Arterial 6.93 (7.35-7.45)
[2024-08-15] MEDS: Norepinephrine/NS 16mg/250ml 16 MG/250 ML BAG 97.806 MG IV (20:57)
[2024-08-15] MEDS: Norepinephrine/NS 16mg/250ml 16 MG/250 ML BAG 89.301 MG IV (23:41)
[2024-08-15] MEDS: CISATRACURIUM INJ 200 MG in SODIUM CHLORIDE 0.9% 500 ML 500 ML 22.113 MG IV (23:49)
[2024-08-16] VITALS (87 sets, daily range): BP systolic 0–187; BP diastolic 0–117; PULSE 0–126; RESP 0–30; TEMP 35.7–36.9; O2SAT 87–99; BMI 52.7
[2024-08-16] MEDS: Sodium Bicarb 8.4% 50ml Vial* 88.23 MEQ in DEXTROSE 5%-WATER 500 ML 125 MEQ IV ×3 (00:09→10:44)
[2024-08-16 00:16] LABS: Base Excess -27 (-3-3); HCO3 5 mEq/L (20-26); Inspired Oxygen, FIO2 21 %; O2 Saturation 99 % (91-98); PCO2 31 mmHg (32.0-48.0); PO2 216 mmHg (83-108)
[2024-08-16] MEDS: PROPOFOL 1,000 MG IVPB 1,000 MG/100 ML VIAL 10.206 MG IV ×2 (00:20→08:55)
[2024-08-16 00:21] LABS: Allen Test Performed/OK; Puncture Site Arterial Line
[2024-08-16 00:22] LABS: pH, Arterial 6.83 (7.35-7.45)
[2024-08-16] MEDS: CALCIUM GLUCONATE 10% INJ 1 GM/10 ML VIAL IV ×5 (00:26→12:00)
[2024-08-16] MEDS: HYDROCORTISONE SOD SUCC INJ 100 MG VIAL 50 MG IV ×2 (00:26→06:04)
[2024-08-16] MEDS: Sodium Bicarb Inj 8.4% SYR 50 ML SYRINGE IV ×5 (00:26→05:50)
[2024-08-16 00:39] LABS: Anion Gap 32 (7-16); BUN/Creatinine Ratio 21 Ratio (12-20); Blood Urea Nitrogen 36 mg/dL (9-23); Calcium 8.1 mg/dL (8.3-10.6); Chloride 99 mMol/L (98-107); Creatinine (Component) 1.7 mg/dL (0.6-1.3); Estimated Creatinine Clearance 48.3 mL/min (>60); Glucose 54 mg/dL (74-106); Magnesium 2.9 mg/dL (1.6-2.6); Osmolality,Calculated 287 (275-295); Potassium 5.2 mMol/L (3.4-5.1); Sodium 141 mMol/L (136-145); eGFR 35 See Note
[2024-08-16 00:41] LABS: Phosphorous 10.5 mg/dL (2.4-5.1)
[2024-08-16 00:42] LABS: Carbon Dioxide < 10.0 mMol/L (20.0-31.0)
[2024-08-16] MEDS: DEXTROSE 50%-WATER INJ 50 ML SYRINGE IV ×3 (00:54→05:28)
[2024-08-16] MEDS: Norepinephrine/NS 16mg/250ml 16 MG/250 ML BAG 70.165 MG IV (02:11)
[2024-08-16 03:30] LABS: Allen Test Not Performed; Base Excess -28 (-3-3); HCO3 4 mEq/L (20-26); Inspired Oxygen, FIO2 100 %; O2 Saturation 99 % (91-98); PCO2 30 mmHg (32.0-48.0); PO2 196 mmHg (83-108); Puncture Site Arterial Line
[2024-08-16 03:31] LABS: pH, Arterial 6.75 (7.35-7.45)
--- NOTE | 2024-08-16 03:34 | PC.RT ---
RR increased to 28 per abg results
[2024-08-16] MEDS: fentaNYL 2,500 MCG/250 ML BAG 2,500 MCG/250 ML BAG 10 MCG IV (03:49)
[2024-08-16] MEDS: Norepinephrine/NS 16mg/250ml 16 MG/250 ML BAG 59.534 MG IV (05:29)
[2024-08-16 05:45] LABS: Base Excess -28 (-3-3); HCO3 4 mEq/L (20-26); Inspired Oxygen, FIO2 100 %; O2 Saturation 99 % (91-98); PCO2 26 mmHg (32.0-48.0); PO2 212 mmHg (83-108)
[2024-08-16 05:48] LABS: Allen Test Not Performed; Puncture Site Femoral Artery; pH, Arterial 6.78 (7.35-7.45)
[2024-08-16] MEDS: metroNIDAZOLE/NS 500 MG IVPB 500 MG/100 ML BAG 200 MG IV (06:05)
[2024-08-16] MEDS: CIPROFLOXACIN/D5w 400 MG IVPB 400 MG/200 ML BAG 200 MG IV (06:09)
[2024-08-16 06:27] LABS: Basophils % (Auto) 0 % (0-2.5); Eosinophils % (Auto) 0 % (0-10)
[2024-08-16] MEDS: ALBUTEROL/IPRATROPIUM (Duoneb) RT SOL 3 ML NEBU INH ×2 (06:30→10:10)
[2024-08-16 06:49] LABS: Anion Gap 33 (7-16); BUN/Creatinine Ratio 18 Ratio (12-20); Blood Urea Nitrogen 36 mg/dL (9-23); Calcium 8.7 mg/dL (8.3-10.6); Chloride 96 mMol/L (98-107); Glucose 362 mg/dL (74-106); Magnesium 3.2 mg/dL (1.6-2.6); Osmolality,Calculated 300 (275-295); Sodium 139 mMol/L (136-145); eGFR 29 See Note
[2024-08-16 06:52] LABS: Carbon Dioxide < 10.0 mMol/L (20.0-31.0); Phosphorous 14.2 mg/dL (2.4-5.1); Potassium 7.1 mMol/L (3.4-5.1)
[2024-08-16 07:07] LABS: Base Excess, Venous -26 (-3-3); O2 Saturation, Venous 100 % (96-97); PCO2, Venous 23 mmHg (36-56); PO2, Venous 214 mmHg (15-58); pH, Venous 6.88 (7.33-7.66)
[2024-08-16 07:10] LABS: Lactate (Lactic Acid) > 31.0 mMol/L (0.4-2.0)
[2024-08-16] MEDS: Norepinephrine/NS 16mg/250ml 16 MG/250 ML BAG 318.932 MG IV (08:39)
[2024-08-16] MEDS: ALBUMIN HUMAN 25% IVPB 25 GM/100 ML BTL IV (08:40)
[2024-08-16] MEDS: ALBUMIN HUMAN 5% IVPB 12.5 GM/250 ML BTL IV (08:53)
--- NOTE | 2024-08-16 08:59 | PC.NURSE ---
BP remains to be low, MAP 53. UF has been off. Gave 1 albumin 25 gms iv bolus, on levo. Bur BP remains low. If VS will not improve, will d/c HD.
[2024-08-16] MEDS: Norepinephrine/NS 16mg/250ml 16 MG/250 ML BAG 265.777 MG IV (09:26)
[2024-08-16] MEDS: HEPARIN SOD INJ 1000 UNIT/ML VIAL 10 ML 2500 UNIT INDWELLCAT (09:27)
--- NOTE | 2024-08-16 09:40 | PC.NURSE ---
Dialysis discontinue with 2 hrs left due to pt not tolerating tx. BP 84/32, MAP 49. No fluid removal. Pt was dialyzed only for 58 mins. BP improved after blood was rinsed back. Report given to Tati HERRERA
[2024-08-16 09:46] LABS: Immature Granulocytes % (Auto) 11 % (0-0); Immature Granulocytes Auto 3.45 Thou/mm3 (0.00-0.00); Lymphocytes # (Auto) 6.6 Thou/mm3 (1.0-4.8); Lymphocytes % (Auto) 20 % (10-50); Mean Corpuscular HGB Conc 26.5 g/dl (31.0-37.0); Mean Corpuscular Hemoglobin 27.6 pg (25.0-35.0); Mean Corpuscular Volume 104 fL (80-100); Monocytes # (Auto) 3.3 Thou/mm3 (0.0-0.8); Monocytes % (Auto) 10 % (0-12); Neutrophils # (Auto) 19.5 Thou/mm3 (1.8-7.7); Neutrophils % (Auto) 59 % (37-80); Nucleated Red Blood Cell # 2.12 Thou/mm3 (0.00-0.00); Nucleated Red Blood Cell % 6 /100 WBC (0); Platelet Count 183 Thou/mm3 (140-440); RDW Standard Deviation 75.1 fL (36.4-46.3); Red Blood Count 1.27 Miln/mm3 (4.00-5.20); White Blood Count 32.9 Thou/mm3 (3.6-11.0)
[2024-08-16 09:53] LABS: Hematocrit 13.2 % (36.0-46.0); Hemoglobin 3.5 g/dL (12.0-16.0)
[2024-08-16 09:59] LABS: Partial Thromboplastin Time > 139.0 Seconds (22.0-36.0)
[2024-08-16] MEDS: Norepinephrine/NS 16mg/250ml 16 MG/250 ML BAG 212.621 MG IV (10:47)
--- NOTE | 2024-08-16 10:55 | PD.NEPHPROG ---
Documentation for date of: 08/16/24 Subjective Subjective Interval history: Reason for consult: QASIM, severe acidosis, need for renal replacement therapy History of present illness: The patient is a 59-year-old female with a previous medical history of CHF, A-fib, hypertension, COPD, CVA with residual left-sided hemiparesis who was brought in by ambulance from senior living due to altered mental status. ED course: In the ED blood pressure 77/39, saturation 71% on room air. Her mental status severely declined and patient was intubated due to acute hypoxic respiratory failure. She was noticed to have black stool, FOBT was positive. She was started on fluids, antibiotics and Protonix in the ED. Head CT was unremarkable, chest abdomen pelvis CT showed significant bilateral pneumonia, significant diffuse nonspecific colitis proctitis pattern. Surgeon Dr. Butt was consulted on 08/14/2024, recommended no surgical explanation at that point of time, continue with antibiotics. Overnight her condition continues to worsen, she was not able to maintain MAP, pressor requirements continued to grow, lactate continued to grow, kidney functions worsened, no significant urine output in he last 6 hours and more. 08/15/[address] Riley decided to proceed with explorative laparotomy. Supervisor Claims Dr. Vega was consulted for QASIM, severe metabolic acidosis and the possibility for renal replacement therapy. 08/15/24: Patient was transferred for explorative laparotomy. Dr Riley had a discussion regarding poor outcome and possibility of mortality on the intra- and post-operative period and family decided to proceed with treatment. Will continue to monitor patient in the post-operative period for now and will proceed with renal replacement therapy if needed. 08/16/2024 patient currently seen in ICU. Poor prognosis. Blood pressure seems to be in the lower side. Her pH was 6.8, had to do emergency dialysis. Currently seen on dialysis. On ventilator. Family requesting all aggressive measures. Potassium 7.1. Review of Systems Review of Systems ROS Unobtainable: unobtainable due to medical condition and due to endotracheal tube Exam Vital Signs Temp Pulse Resp BP Pulse Ox O2 Del Method O2 Flow Rate 36.3 C 68 28 H 99/47 L 99 Nasal Cannula 1 08/16/24 09:23 08/16/24 10:47 08/16/24 10:10 08/16/24 10:47 08/16/24 07:53 08/15/24 18:00 08/16/24 09:23 FiO2 100 08/16/24 10:10 Narrative Exam Physical Exam General: Intubated, sedated and paralyzed. Pale, ill-appearing. BMI 45.5. HEENT: Normocephalic, atraumatic, mucous membranes moist. Heart: Regular rate and rhythm, no murmurs. Lungs: Distal lung sounds due to body habitus. Abdomen: Soft, nondistended, nontender, positive bowel sounds. ?No guarding or rebound tenderness. Neurologic: Unable to assess-sedation and paralytics. Extremities: 2+ bilateral lower extremity edema. Skin: No rash or ecchymoses. Objective Labs 08/16/24 07:50 08/16/24 06:40 Labs: Laboratory Results - last 24 hr 08/15/24 08/15/24 08/15/24 02:27 11:08 13:50 WBC RBC Hgb Hct MCV MCH MCHC RDW Std Deviation Plt Count Neut % (Auto) Lymph % (Auto) [place] % (Auto) Eos % (Auto) Baso % (Auto) Neut # (Auto) Lymph # (Auto) [place] # (Auto) Eos # (Auto) Baso # (Auto) Immature Gran # (Auto) Absolute Nucleated RBC Immature Gran % Nucleated RBC % PT INR APTT Puncture Site Right Femoral ABG pH 6.84 L* D ABG pCO2 47 ABG pO2 138 H D ABG HCO3 8 L* ABG O2 Saturation 97 ABG Base Excess -25 L VBG pH 7.06 L VBG pCO2 37 VBG pO2 159 H VBG O2 Sat (Gayle) 99 H VBG Base Excess -19 L FiO2 100 Sodium 139 Potassium 4.3 Chloride 104 Carbon Dioxide 10.9 L* Anion Gap 24 H BUN 44 H Creatinine 1.9 H Estim Creat Clear Calc 43.2 L eGFR 30 L BUN/Creatinine Ratio 23 H Glucose 86 D Calculated Osmolality 287 Lactic Acid 17.0 H* Calcium 8.5 Phosphorus 8.4 H Magnesium 2.8 H Blood Type A Positive Antibody Screen NEGATIVE Crossmatch See Detail Blood Bank Wristband ID Yes Blood Bank Comment PLATP Ready 08/15/24 08/15/24 08/15/24 17:24 19:55 22:50 WBC RBC Hgb Hct MCV MCH MCHC RDW Std Deviation Plt Count Neut % (Auto) Lymph % (Auto) [place] % (Auto) Eos % (Auto) Baso % (Auto) Neut # (Auto) Lymph # (Auto) [place] # (Auto) Eos # (Auto) Baso # (Auto) Immature Gran # (Auto) Absolute Nucleated RBC Immature Gran % Nucleated RBC % PT INR APTT Puncture Site Arterial Line ABG pH 6.93 L* ABG pCO2 41 ABG pO2 270 H D ABG HCO3 9 L* ABG O2 Saturation 100 H ABG Base Excess -22 L VBG pH VBG pCO2 VBG pO2 VBG O2 Sat (Gayle) VBG Base Excess FiO2 100 Sodium 141 Potassium 5.2 H D Chloride 99 Carbon Dioxide < 10.0 L* Anion Gap 32 H BUN 36 H Creatinine 1.7 H Estim Creat Clear Calc 48.3 L eGFR 35 L BUN/Creatinine Ratio 21 H Glucose 54 L Calculated Osmolality 287 Lactic Acid 21.0 H* Calcium 8.1 L Phosphorus 10.5 H Magnesium 2.9 H Blood Type Antibody Screen Crossmatch Blood Bank Wristband ID Blood Bank Comment 08/16/24 08/16/24 08/16/24 00:04 03:02 05:25 WBC RBC Hgb Hct MCV MCH MCHC RDW Std Deviation Plt Count Neut % (Auto) Lymph % (Auto) [place] % (Auto) Eos % (Auto) Baso % (Auto) Neut # (Auto) Lymph # (Auto) [place] # (Auto) Eos # (Auto) Baso # (Auto) Immature Gran # (Auto) Absolute Nucleated RBC Immature Gran % Nucleated RBC % PT INR APTT Puncture Site Arterial Line Arterial Line Femoral Artery ABG pH 6.83 L* D 6.75 L* 6.78 L* ABG pCO2 31 L D 30 L 26 L ABG pO2 216 H D 196 H D 212 H ABG HCO3 5 L* 4 L* 4 L* ABG O2 Saturation 99 H 99 H 99 H ABG Base Excess -27 L -28 L -28 L VBG pH VBG pCO2 VBG pO2 VBG O2 Sat (Gayle) VBG Base Excess FiO2 21 100 100 Sodium Potassium Chloride Carbon Dioxide Anion Gap BUN Creatinine Estim Creat Clear Calc eGFR BUN/Creatinine Ratio Glucose Calculated Osmolality Lactic Acid Calcium Phosphorus Magnesium Blood Type Antibody Screen Crossmatch Blood Bank Wristband ID Blood Bank Comment 08/16/24 08/16/24 06:40 07:50 WBC 32.9 H RBC 1.27 L* Hgb 3.5 L* D Hct 13.2 L* MCV 104 H MCH 27.6 MCHC 26.5 L RDW Std Deviation 75.1 H Plt Count 183 D Neut % (Auto) 59 Lymph % (Auto) 20 [place] % (Auto) 10 Eos % (Auto) 0 Baso % (Auto) 0 Neut # (Auto) 19.5 H Lymph # (Auto) 6.6 H [place] # (Auto) 3.3 H Eos # (Auto) 0.0 Baso # (Auto) 0.0 Immature Gran # (Auto) 3.45 H Absolute Nucleated RBC 2.12 H Immature Gran % 11 H Nucleated RBC % 6 H PT TNP INR TNP APTT > 139.0 H* D Puncture Site ABG pH ABG pCO2 ABG pO2 ABG HCO3 ABG O2 Saturation ABG Base Excess VBG pH 6.88 L VBG pCO2 23 L D VBG pO2 214 H D VBG O2 Sat (Gayle) 100 H VBG Base Excess -26 L FiO2 Sodium 139 Potassium 7.1 H* D Chloride 96 L Carbon Dioxide < 10.0 L* Anion Gap 33 H BUN 36 H Creatinine 2.0 H Estim Creat Clear Calc 41.0 L eGFR 29 L BUN/Creatinine Ratio 18 Glucose 362 H D Calculated Osmolality 300 H Lactic Acid > 31.0 H* Calcium 8.7 Phosphorus 14.2 H Magnesium 3.2 H Blood Type Antibody Screen Crossmatch Blood Bank Wristband ID Blood Bank Comment ABG Interpretation ABG results: 08/14/24 08/14/24 08/14/24 13:56 18:03 21:30 ABG pH 7.12 L* 7.15 L* 7.20 L ABG pCO2 57 H 58 H 48 D ABG pO2 80 L 69 L 64 L ABG HCO3 19 L 20 19 L ABG O2 Saturation 98 90 L 89 L ABG Base Excess -11 L -9 L -9 L VBG pH VBG pCO2 VBG pO2 VBG Base Excess 08/15/24 08/15/24 08/15/24 01:30 03:30 05:03 ABG pH 7.17 L* 7.20 L 7.17 L* ABG pCO2 42 46 43 ABG pO2 57 L* 75 L 103 D ABG HCO3 15 L 18 L 16 L ABG O2 Saturation 85 L 93 97 ABG Base Excess -13 L -10 L -13 L VBG pH VBG pCO2 VBG pO2 VBG Base Excess 08/15/24 08/15/24 08/15/24 11:08 13:50 19:55 ABG pH 6.84 L* D 6.93 L* ABG pCO2 47 41 ABG pO2 138 H D 270 H D ABG HCO3 8 L* 9 L* ABG O2 Saturation 97 100 H ABG Base Excess -25 L -22 L VBG pH 7.06 L VBG pCO2 37 VBG pO2 159 H VBG Base Excess -19 L 08/16/24 08/16/24 08/16/24 00:04 03:02 05:25 ABG pH 6.83 L* D 6.75 L* 6.78 L* ABG pCO2 31 L D 30 L 26 L ABG pO2 216 H D 196 H D 212 H ABG HCO3 5 L* 4 L* 4 L* ABG O2 Saturation 99 H 99 H 99 H ABG Base Excess -27 L -28 L -28 L VBG pH VBG pCO2 VBG pO2 VBG Base Excess 08/16/24 06:40 ABG pH ABG pCO2 ABG pO2 ABG HCO3 ABG O2 Saturation ABG Base Excess VBG pH 6.88 L VBG pCO2 23 L D VBG pO2 214 H D VBG Base Excess -26 L Assessment & Plan Additional Assessment & Plan Additional Plan: The patient is a 59-year-old female with a previous medical history of CHF, A-fib, hypertension, COPD, CVA with residual left-sided hemiparesis who was brought in by ambulance from senior living due to altered mental status. She was intubated in the ED and was admitted to the ICU. Nephrology was consulted due to QASIM. #QASIM, hyperkalemia #Anion gap metabolic acidosis #Acute encephalopathy #CVA history #Shock, most likely septic #A-fib #AHRF #Pneumonia #Abdominal mass #Ischemic bowel suspected #Melena #Hyperglycemia #Thrombocytosis #Pneumonia - management as per primary team Patient was taken to the OR last evening for ischemic bowel and had colectomy. Still lactic acid significantly elevated with hyperkalemia, intractable metabolic acidosis. Patient currently seen on dialysis. Hemodialysis for 3 hours, qb 200, 2K, 40 bicarbonate,UF 0 L, Epogen 6000, no heparin ordered. Plan of care discussed with the dialysis nurse. Please see dialysis flowsheet for further details. Prognosis remains guarded. Not sure if her dialysis is going to help her with underlying ischemic bowel and lactic acidosis. Critical care time spent more than 35 minutes regarding plan of care and disease management. Spoke to Dr. Badillo and ICU team. Quality - progress note Quality Measures Quality Measures: VTE prophylaxis Reason for Continued Stay Reason for Continued Stay: further monitoring
[2024-08-16 11:01] LABS: Reflex Lactate? Y
[2024-08-16] MEDS: CALCIUM CHLORIDE 10% INJ 10 ML SYRG IV (11:15)
--- NOTE | 2024-08-16 12:11 | PC.SS ---
Addendum entered and electronically signed by YASHIRA Painting 08/16/24 12:49: Patient's son (Kaleb) and partner arrived at patient's beside. Both family members present as patient . Original Note: Addendum entered and electronically signed by YASHIRA Painting 08/16/24 12:12: BRAINER updated sign maintenance. Original Note: Code Blue initiated on the patient. BRAINER contacted patient's partner, Chalo Jessica . Partner has secured transportation is in route to the hospital.
[2024-08-16 12:15] LABS: Base Excess -13 (-3-3); HCO3 13 mEq/L (20-26); Inspired Oxygen, FIO2 100 %; O2 Saturation 101 % (91-98); PCO2 26 mmHg (32.0-48.0); PO2 483 mmHg (83-108)
[2024-08-16 12:19] LABS: Puncture Site Arterial Line
[2024-08-16 12:36] LABS: Lactic Acid, 3 HR > 31.0 mMol/L (0.4-2.0)
--- NOTE | 2024-08-16 12:49 | DES_ITS ---
<Statement entered by Maynor Badillo MD - 08/27/24 08:23> Attending Attestation: I was present at the bedside at the time the patient was pronounced by the above resident. I agree with the findings as documented. Condolences given to the family at bedside. Documentation for date of: 08/16/24 Pronouncement Note Date and Time of Date of : 08/16/24 Time of : 12:41 PCOD Preliminary cause of : Cardiopulmonary arrest Additional Data Confirmation of : no pulse, no respirations, no heart sounds and pupils fixed and dilated Family: at bedside Additional persons at bedside: acid supervisor and social work assistant Attending/PCP notified?: Yes Attending physician: Haris Clements MD Was code activated?: Yes Autopsy requested?: No lens examiner notified?: Yes Organ bank notified?: No Advance directives: No
--- NOTE | 2024-08-16 12:49 | PD.DPN ---
Documentation for date of: 08/16/24 Pronouncement Note Date and Time of Date of : 08/16/24 Time of : 12:41 PCOD Preliminary cause of : Cardiopulmonary arrest Additional Data Confirmation of : no pulse, no respirations, no heart sounds and pupils fixed and dilated Family: at bedside Additional persons at bedside: deck worker and certified social workers in health care Attending/PCP notified?: Yes Attending physician: Haris Clements MD Was code activated?: Yes Autopsy requested?: No payroll examiner notified?: Yes Organ bank notified?: No Advance directives: No
--- NOTE | 2024-08-16 13:00 | PC.NURSE ---
[email or web address] notified with referral. [facility]#[phone] Contacted: Dwayne Pending call back for possible tissue donation.
--- NOTE | 2024-08-16 13:34 | PC.NURSE ---
@[phone]- Call back from [facility], contacted by Krista; pt has been r/o for donation.
--- NOTE | 2024-08-16 16:26 | DES_ITS ---
<Statement entered by Maynor Badillo MD - 08/27/24 14:38> Attending Attestation: Patient seen and examined with above resident, Barbara Marsh MD. I agree with the findings, assessment, and plan of care as documented except for any differences below. Patient with ischemic colitis and severe septic shock complicated by acute renal failure and hypoxic respiratory failure. Patient's status continued to decline with cardiac arrest this morning. Patient's family was contacted during resuscitative efforts. These were continued for 40 minutes until the patient's family could arrive to the bedside. At that point, I did associate counsel the patient's family on low low likelihood of recovery and the patient was transitioned to DNR status with likely imminent demise. Patient's son and were at the bedside as the patient . Patient was maxed on multiple pressors and could not perform hemodialysis despite aggressive antibiotic and resuscitative effort. Her initial pressor requirements had improved after dialysis yesterday with infection and remained overwhelming the setting of multiorgan failure. We have prepared the patient's family for this below the wanted to remain aggressive even after my discussion with them and surgical team yesterday before taking her to the operating. Total critical care time: I personally spent 35 minutes review of physiologic parameters, directing plan of care throughout the day, coordination of care with other specialties, counseling patient's family at bedside. This is exclusive of time spent teaching housestaff or performing separate billable procedures. Patient required critical care services for severe septic shock renal failure/Hypoxic respiratory failure from ischemic colitis status post colectomy with expected demise. Documentation for date of: 08/16/24 Summary Date and Time Date of admission: 08/14/24 17:21 Date of : 08/16/24 Time of : 12:41 Summary Hospital Course: Ms. Rossi is a 59-year-old female with past medical history significant for CHF, A-fib, hypertension, COPD, and CVA with residual deficit of left-side paralysis. Patient was brought to the [facility] ED on 08/14/2023 from intermediate due to altered mental status. Upon EMS arrival patient was hypoxic saturating at 71% on room air. On arrival to the ED patient was alert and oriented x 4 however soon after patient became severely hypoxic requiring intubation and admitted to ICU. Despite being on mechanical ventilation patient continued to desat and hypotensive with MAP of 49. Pressor support and requiring 100% FiO2 on the ventilator. Patient's condition continued to deteriorate during ICU admission, arterial blood gas showed pH of 7.1 with lactic acid of above 30. Rectal tube showed black stool, surgery was consulted for possible bowel ischemia requiring ex lap. Patient underwent surgical intervention with colectomy of large areas of ischemic bowel. Patient had no improvement and continued to deteriorate and coded approximately around 11:50 AM, CPR was given for more than 40 minutes, multiple blood transfusions were given for Hgb 3.5 and patient passed at 12:41 due to cardiopulmonary arrest. Images: Head CT was negative for acute hemorrhage, mass effect or midline shift CT of chest abdomen pelvis without contrast showed significant bilateral pneumonia ARDS pattern, cholelithiasis, severe diffuse fatty infiltration throughout the liver, significant diffuse nonspecific colitis proctitis pattern, diffuse thickening of colonic wall including the rectum, severe osteopenia. #CVA history #Acute encephalopathy #Cardiogenic shock #A-fib #AHRF 2/2 fluid overload #Pneumonia #ARDS #Ischemic bowel s/p resection #Acute blood loss anemia #QASIM on CKD #Anion gap metabolic acidosis #lactic acidosis #Thrombocytosis Assessment and plan discussed with my attending physician Dr. Aby Marsh (PGY-1)- Internal medicine resident Additional Data Confirmation of as documented by pronouncing clinician: no pulse, no respirations, no heart sounds and pupils fixed and dilated Family: at bedside Additional persons at bedside: social services designee and other Attending/PCP notified?: Yes Attending physician: Maynor Badillo MD Was code activated?: Yes Autopsy requested?: No Hospice patient?: No Visit Providers Provider Primary care physician: Physician No Primary/Family Consults: 08/14/24 21:47 Consult to General Surgery Stat Comment: necrotizing enterocolitis Consulting Provider: Daquan Palacios 08/15/24 01:04 Consult to Gastroenterology Urgent Comment: acute GI bleed Consulting Provider: Renata Cordero 08/15/24 05:35 Consult to Nephrology Urgent Comment: anuria and metabolic acidosis Consulting Provider: Dusty Vega Discharge Plan Plan Patient Disposition: Prescriptions/Referrals Referrals: No Primary/Family,Physician [Primary Care Provider] - Patient/Caregiver Discharge Instructions Print Language: Sinhala
--- NOTE | 2024-08-16 20:30 | PD.EVENT ---
Documentation for date of: 08/16/24 Event Note Event Note: On this patient I had just reviewed the chart I never saw the patient in person There is no need to dictate the consultation
[2024-08-16 23:01] LABS: Hepatitis A Antibody IgM Non Reactive (Non React); Hepatitis B Core Antibody IgM Non Reactive (Non React); Hepatitis B Surface Ab NonReact(Not Immune) (Immune); Hepatitis C Antibody Non Reactive (Non React)
[2024-08-17 08:26] LABS: Hepatitis B Surface Antigen Non Reactive (Non React)
== END 2024-08-16 12:41 | disposition expired | DRG 710 ==
LOC: SERX 17:23 → SERHOLD 17:42 → S2SX 19:41
PROVIDERS: Anesthesiology; Internal Medicine; Student in an Organized Health Care Education/Training Program; Surgery; Admitting Provider Internal Medicine Critical Care Medicine; Emergency Provider Emergency Medicine; Visit Provider Internal Medicine
PROC: 0DTG0ZZ Resection of Left Large Intestine, Open Approach (ICD-10-PCS; CPT 49000; principal; 2024-08-15 08:30)
DX: A41.9 Sepsis, unspecified organism (principal); J80 Acute respiratory distress syndrome; I48.91 Unspecified atrial fibrillation; N18.30 Chronic kidney disease, stage 3 unspecified; I13.0 Hypertensive heart and chronic kidney disease with heart failure and stage 1 through stage 4 chronic kidney disease, or unspecified chronic kidney disease; I50.9 Heart failure, unspecified; J18.9 Pneumonia, unspecified organism; J44.0 Chronic obstructive pulmonary disease with (acute) lower respiratory infection; G93.49 Other encephalopathy; R57.0 Cardiogenic shock; R73.9 Hyperglycemia, unspecified; D75.839 Thrombocytosis, unspecified; E87.20 Acidosis, unspecified; K55.9 Vascular disorder of intestine, unspecified; E78.5 Hyperlipidemia, unspecified; E66.01 Morbid (severe) obesity due to excess calories; N17.9 Acute kidney failure, unspecified; I69.354 Hemiplegia and hemiparesis following cerebral infarction affecting left non-dominant side; K76.0 Fatty (change of) liver, not elsewhere classified; K80.20 Calculus of gallbladder without cholecystitis without obstruction; R65.21 Severe sepsis with septic shock; D62 Acute posthemorrhagic anemia; E87.5 Hyperkalemia; I46.9 Cardiac arrest, cause unspecified; Z99.81 Dependence on supplemental oxygen; Z79.01 Long term (current) use of anticoagulants; Z68.41 Body mass index [BMI] 40.0-44.9, adult
CPT/HCPCS: 36415; 36600; 70450; 71045; 71250; 74176; 80048; 80053; 80074; 80162; 80307; 81001; 82140; 82550; 82803; 83036; 83605; 83735; 83880; 84100; 84145; 84443; 84484; 85014; 85018; 85025; 85610; 85730; 86706; 86850; 86900; 86901; 86923; 86927; 86965; 87040; 87077; 87081; 87186; 87205; 87400; 87502; 87811; 92950; 93005; 94002; 94003; 94640; 94664; 96361; 96365; 96366; 96375; 99291; A4217; A4649; A9270; J0456; J0612; J0696; J0744; J1643; J1720; J1815; J1940; J2250; J2251; J2470; J2598; J2704; J3010; J3371; J3490; J7030; J7040; J7050; J7060; J7120; P9016; P9035; P9045; P9047; P9060; J1644; J1836; J3370